=== PATIENT | female | born 1955 | race Caucasian/White ===

== ENCOUNTER → 2021-02-10 12:34 | Outpatient (CLI) | payer MEDICARE, OTHER, SELFPAY ==
--- NOTE | ~2021-02-10 | DEXA_ITS ---
Bone Density Report Name: KARO CHRISTENSEN Age: 65 Sex: Female Ethnicity: White Date of : 1955 Indication: postmenopausal; screening for osteoporosis; Referring Provider: Jaya Sy Study: Bone densitometry was performed. Exam Date: February 10, 2021 Accession number: [id number] Bone Density: Region BMD T-score Z-score Classification AP Spine (L1-L4) 0.759 -2.6 -0.7 Osteoporosis Femoral Neck (Left) 0.573 -2.5 -0.9 Osteoporosis Total Hip (Left) 0.713 -1.9 -0.6 Osteopenia Femoral Neck (Right) 0.556 -2.6 -1.0 Osteoporosis Total Hip (Right) 0.691 -2.1 -0.7 Osteopenia Total Hip Mean 0.702 -2.0 -0.7 Osteopenia World Health Organization criteria for BMD impression classify patients as: Normal (T-score at or above -1.0), Osteopenia (T-score between -1.0 and -2.5), or Osteoporosis (T-score at or below -2.5). 10-year Fracture Risk: FRAX not reported because: Some T-score for Spine Total or Hip Total or Femoral Neck at or below -2.5 Clinical Information Provided by Patient: Has used the following medications: Vitamin D Patient maximum height was 62.5 Menopause Age: 51 No regular weight bearing exercise Does not regularly consume dairy products Drinks caffeinated beverages Onset of menses at age 11 Number of children 4 Impression: The patient has osteoporosis, based on the Total Spine T-score. Discussion: INCREASED RISK OF FRACTURE. BONE DENSITY IS UNDESIRABLY LOW AT ONE OR MORE SKELETAL SITES, CONSISTENT WITH POSTMENOPAUSAL OSTEOPOROSIS. This patient's lowest T-score meets the World Health Organization's (WHO) criteria for osteoporosis at one or more sites (T-score -2.5 or below). In untreated patients, the risk of osteoporotic fracture increases approximately two-fold for each 1.0 SD decrease in T-score. Low bone density is not the only risk factor for fracture; also consider factors such as patient's age, frailty or poor health, risk of falling, risk of injury, previous osteoporotic fracture, family history of osteoporosis, cigarette smoking, low body weight, etc. Not everyone with low bone mineral density has osteoporosis; osteomalacia and other metabolic bone disorders should also be considered. Patients who have osteoporosis should be evaluated for specific diseases and conditions (secondary causes) that may cause or contribute to bone loss. The [place] [employer]ocr[employer] (AACE) and National Osteoporosis Foundation (NOF) recommend pharmacologic intervention for all postmenopausal women whose T-score is in this range. The patient should follow a healthful lifestyle (good nutrition with adequate calcium and vitamin D, and appropriate weight-bearing exercise). Follow-Up: Consider a repeat BMD and Vertebral Fracture Assessment (VFA) exam in 2 years or sooner if medically necessary, to re
== END ==
PROVIDERS: PCP Nurse Practitioner Family; Visit Provider Obstetrics & Gynecology
DX: M81.0 Age-related osteoporosis without current pathological fracture (principal); M85.852 Other specified disorders of bone density and structure, left thigh; M85.851 Other specified disorders of bone density and structure, right thigh
CPT/HCPCS: 77080

== ENCOUNTER 2023-10-08 12:52 | Outpatient (CLI) | payer MEDICARE, OTHER, SELFPAY ==
--- NOTE | ~2023-10-08 | DEXA_ITS ---
Bone Density Report Name: KARO CHRISTENSEN Age: 68 Sex: Female Ethnicity: White Date of : 1955 Indication: osteopenia; monitoring treatment; cancer; Referring Provider: RUDIAMIRAH Study: Bone densitometry was performed. Exam Date: October 08, 2023 Accession number: [id number] Bone Density: Region BMD T-score Z-score Classification AP Spine(L1-L4) 0.783 -2.4 -0.3 Osteopenia Femoral Neck (Left) 0.546 -2.7 -1.0 Osteoporosis Total Hip (Left) 0.735 -1.7 -0.2 Osteopenia Femoral Neck (Right) 0.563 -2.6 -0.8 Osteoporosis Total Hip (Right) 0.724 -1.8 -0.3 Osteopenia Total Hip Mean 0.730 -1.8 -0.3 Osteopenia World Health Organization criteria for BMD impression classify patients as: Normal (T-score at or above -1.0), Osteopenia (T-score between -1.0 and -2.5), or Osteoporosis (T-score at or below -2.5). 10-year Fracture Risk: FRAX not reported because: Some T-score for Spine Total or Hip Total or Femoral Neck at or below -2.5 Treated for osteoporosis Previous Exams: Region Exam Age BMD T-score BMD Change BMD Change Date g/cm2 vs Baseline vs Previous AP Spine (L1-L4) 10/08/2023 68 0.783 -2.4 -0.045 (-5.5%) -0.045 (-5.5%) 09/24/2014 59 0.828 -2.0 Total Hip(Left) 10/08/2023 68 0.735 -1.7 -0.027 (-3.6%) -0.027 (-3.6%) 09/24/2014 59 0.763 -1.5 Total Hip(Right) 10/08/2023 68 0.724 -1.8 -0.030 (-3.9%) -0.030 (-3.9%) 09/24/2014 59 0.754 -1.5 *Denotes significance at 95% confidence level, LSC for AP Spine = 0.022 g/cm2, LSC for Total Hip = 0.027 g/cm2 Clinical Information Provided by Patient: Is being treated for osteoporosis Has used the following medications: Prolia (i.e. denosumab), Vitamin D Has the following medical conditions: Cancer Patient maximum height was 62.5 Menopause Age: 49 Does not regularly consume dairy products Drinks caffeinated beverages Onset of menses at age 11 Number of children 4 Impression: The patient has osteoporosis, based on the Left Femoral Neck T-score. The BMD for the AP Spine (L1-L4) decreased, changing by -5.5% since the last DXA exam. The BMD for the Total Hip(Left) decreased, changing by -3.6% since the last DXA exam. The BMD for the Total Hip(Right) decreased, changing by -3.9% since the last DXA exam. Discussion: SIGNIFICANT BONE LOSS OBSERVED. Adherence to therapy (including calcium and vitamin D intake) should be assessed. If compliance is not a factor, review management a
== END 2023-10-08 12:53 | disposition home or self-care (01) ==
LOC: ANHIMG 12:56
PROVIDERS: PCP Nurse Practitioner Family; Visit Provider Internal Medicine
DX: Z78.0 Asymptomatic menopausal state (principal); M85.88 Other specified disorders of bone density and structure, other site; M81.0 Age-related osteoporosis without current pathological fracture; M85.852 Other specified disorders of bone density and structure, left thigh; M85.851 Other specified disorders of bone density and structure, right thigh
CPT/HCPCS: 77080

== ENCOUNTER 2024-07-12 00:41 | Day surgery (SDC) | payer MEDICARE, OTHER, SELFPAY ==
[2024-07-03 14:24] VITALS: BMI 19.3
--- NOTE | 2024-07-03 14:37 | PC.NURSE ---
Report to the Outpatient Waiting Room, entrance under the green pavilion located off [facility], at time ___10:00AM____ on date ___07/12/24____. Planned Procedure Time: ___12:00PM .? Time changes happen often and if your time is changed the preop area will call you the afternoon before. - You and your visitor will be asked to self-screen and do not enter if you have any COVID symptoms. Please call surgeon if you need to reschedule. - A mask is optional within the hospital at this time. Patients may have clear liquids (water, carbonated beverages, clear teas, apple juice) until 3 hours prior to surgery (9:00AM) with a maximum of 20 ounces. - No food from midnight until time of surgery and no smoking, or chewing tobacco (or any form of nicotine). No chewing gum, candy or mints. Take only the following medications with a SIP of water on the morning of surgery: ____BUSPIRONE DO NOT STOP ANY OF YOUR OTHER PRESCRIPTION MEDICATIONS PRIOR TO SURGERY EXCEPT THE FOLLOWING Hold all vitamins and supplements for 3 days per anesthesiologist.- LAST DOSE 07/08/24 Please no make-up, nail new zealander, hairspray, perfume, deodorant, or body powder the day of surgery.? No jewelry (including any body piercings) or valuables the day of surgery, leave them at home.? Please take a shower or bath the night before, or the morning of, surgery with an antibacterial soap.? Wear comfortable, loose fitting clothing.? - Jewelry must be removed prior to entering the operating room.? Rings and piercings that are not removed may be cut off. - The hospital will not accept responsibility for valuables.? - Please leave all valuables, including medications, at home the day of surgery. If you are going home after surgery, a licensed milk pickup driver must drive you home.? - NO public transportation without another adult if you receive anesthesia. - We recommend that an adult stay with you for 24 hours following discharge. - We also recommend that you do not drive, make important decision, drink alcoholic beverages, or take any drugs that were not prescribed by your health care provider for at least 24 hours after your discharge time. Follow any additional instructions given to you from your surgeon. Telephone instructions given to ___PATIENT and asked if any additional questions and then verbalized understanding. Patient advised to call surgeon office or pre surgery nurse liaison [phone] if any additional questions.
--- OUTSIDE RECORDS SUMMARY | 2024-07-12 00:44 | XMS_ITS | Clinical Summary ---
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 Name Role Phone Unavailable Primary Care Provider Unavailabl e Social History Tobacco Use Types Packs/Day Years Used Date Smoking Tobacco: Never Assessed Comments Unknown Sex and Gender Information Value Date Recorded Sex Assigned at Not on file Legal Sex Female 7:01 PM CDT Gender Identity Not on file Sexual Orientation Not on file Plan of Treatment Health Maintenance Due Date Last Done Comments Colorectal Cancer Screening Colonoscopy (10 Years) 1955 Hepatitis C 1972 DTaP, Tdap and Td Vaccines ( 1 - Tdap) 1973 Mammogram Screening 1994 Pneumococcal Vaccine: 50+ Ye ars (1 of 1 - PCV) 2004 Zoster Vaccines (1 of 2) 2004 Dexa Scan (General) 06/18/2019 COVID-19 Vaccine ( - 2023-2 5 season) 2023 RSV Immunization or 60+ Years (1 - 1-dose 75+ series) 2029 Meningococcal B Vaccine Aged Out No l onger eligible based on patient's age to complete this topic Meningococcal Vaccine Aged Out No jaimee nneka eligible based on patient's age to complete this topic RSV Immunizations Under 20 Months Aged Out No longer eligible based on patient's age to complete this topic
--- OUTSIDE RECORDS SUMMARY | 2024-07-12 00:44 | XMS_ITS | Data Portability ---
Author Organization [facility] Address [address] [place] [address] [place] [address] Assessment Encounter Date Assessment Date Assessment LastModified by Organization Details LastModified Time 08/18/2023 08/18/2023 Annual gynecological exam performed. Patient will come back in a year unless there are new symptoms. [email or web address] Not available 08/18/2023 10:58:35 Plan of Treatment Reminders Order Date Submit Date Provider Last Modified By Organization Details Last Modified Time Details Appointments SURG Hysterosc opy 2024 12:00P Dawit SY MD Not available Not available Not available SURG POST OP 2024 02:15P Dawit SY MD Not available Not available Not available Lab urinalysi s, dipstick 2024 025 [address], [address], [place], [address], 05/11/2024 12:52:51 Referral None recorded. Procedures None recorded. Surgeries hysterosc opy, surgical, with biopsy of endometri um and/or polypecto my (SURG) 2024 025 [id number] Bob Surgery [facility], [address], [place], [address], 06/13/2024 15:24:57 Imaging US, pelvis 2024 025 [email or web address] [place], [address], [place], [address], 05/18/2024 22:26:43 US, transvagi nal 2024 025 [email or web address] [place], [address], [address], [place], [address], 05/18/2024 22:26:43 Medication Orders None recorded. Patient TargetsNo targets recorded. Patient InstructionsNo instructions recorded. Reason for Referral None Reported. 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 Atrop hic conner bob rn. Elect adrienne natarajan d by Sahil Wills ed, CT on 2023 at 11:43 PM ----- ----- ----- ----- ----- ----- ----- ----- ----- ----- ----- ----- ----- ----- ----- ----- ----- ---- HPV RESUL TS: HPV mRNA E6/E7 : No HPV mRNA Detec memo NOTE: This high risk HPV mRNA assay detec ts fourt een high- risk HPV types (16, 18, 31, 33, 35, 39, 45, 51, 52, 56, 58, 59, 66, 68) witho ut diffe renti ation . COMME NT: This speci men was revie wed by a Cytot echno logis t and/o r Patho logis t (as indic ated in this repor t) after evalu ation using the Thinp rep Imagi ng Syste m. CLINI SABI INFOR MATIO N: Menst rual Statu s: LMP (if appli cable ): Clini sabi Histo ry/Pr eviou s Pap: Type of Neopl santino (if appli cable ): Signi fican t Clini sabi Findi ngs: Other Histo ry: Hormo frank (if appli cable ): PAP EDUCA JOSHUA L NOTE: The Pap Test is a scree milind test with an inher ent false negat luba rate. Liqui d-bas ed sampl ing may decre ase, but will not elimi anthony, false negat luba resul ts. A negat luba resul t does not precl ude the prese nce and/o r devel opmen t of disea se, since the prese nce of abnor mal cells in the sampl e depen ds on the locat ion of the lesio n and sampl ing techn ique. Oj nued regul ar scree milind is the best metho d of cance r preve ntion . If repor memo cytol ogic findi ng do not corre late with physi sabi and/o r histo rical findi ngs, furth er inves tigat ion is recom scarlett d, as clini simi moses nted. Not Available [facility] (Lab) [address], [place], [address], 08/21/2023 00:46:41 05/11/19 25 05/11/2024 CULTU RE: URINE result report SEE RESULT S BELOW Test: Cultu re: Urine Speci men Sourc e: Urine - Clean Catch Speci men Type: Urine Speci men Date: 2024 1422 Resul t Date: 20249 Resul t Statu s: Final resul t Abnor mal: No Resul ting Lab: [facility] [address] [facility] [address] Tel: [phone] CULTU RE ----- ----- ----- --- No growt h in 1 day (dete ction level of 10,00 0 colon ies / ml.) Not Available [facility] (Lab) [address], [place], [address], 05/14/2024 23:59:01 05/11/19 25 05/11/2024 urina lysis , dipst ick Leukocytes neg Not Available [email or web address] [address], [place], [address], 05/11/2024 12:52:05 05/11/19 25 05/11/2024 urina lysis , dipst ick Nitrite neg Not Available [facility] [address], [place], [address], 05/11/2024 12:52:05 05/11/19 25 05/11/2024 urina lysis , dipst ick Urobilinogen neg Not Available [facility] nancy [address], [place], [address], 05/11/2024 12:52:05 05/11/19 25 05/11/2024 urina lysis , dipst ick Protein pos Not Available [facility] [address], [place], [address], 05/11/2024 12:52:05 05/11/19 25 05/11/2024 urina lysis , dipst ick pH 6 Not Available [facility] [address], [place], [address], 05/11/2024 12:52:05 05/11/19 25 05/11/2024 urina lysis , dipst ick Specific [place] 1.025 Not Available [facility] renard [address], [place], [address], 05/11/2024 12:52:05 05/11/19 25 05/11/2024 urina lysis , dipst ick Ketone neg Not Available [facility] [address], [place], [address], 05/11/2024 12:52:05 05/11/19 25 05/11/2024 urina lysis , dipst ick Bilirubin neg Not Available [facility] [address], [place], [address], 05/11/2024 12:52:05 05/11/19 25 05/11/2024 urina lysis , dipst ick Glucose neg Not Available [facility] [address], [place], [address], 05/11/2024 12:52:05 05/11/19 25 05/11/2024 urina lysis , dipst ick Appearance light Not Available Cristi [email or web address] [address], [place], [address], 05/11/2024 12:52:05 05/11/19 25 05/11/2024 urina lysis , dipst ick Color yellow Not Available [facility] [address], [place], [address], 05/11/2024 12:52:05 05/18/19 25 05/18/2024 US, gualberto Burks observ ation record ed. [email or web address] [facility] [address], [place], [address], 05/18/2024 18:37:11 05/18/19 25 05/18/2024 US, trans vagin al No observ ation record ed. [email or web address] [place] [address], [place], [address], 05/18/2024 18:37:20 05/18/19 25 05/18/2024 US, pelvi s No observ ation record ed. [email or web address] Michelle [address], [place], [address], 05/19/2024 15:29:47 Result Notes None recorded. Problems Name Problem SNOMED Code Status Onset Date Resolution Date Notes Provider Name and Address Organization Details Recorded Time Screenin g for malignan t neoplasm of rectum Completed 201507/25/2020 Encounter for screening for malignant neoplasm of rectum;Re corded Elsewhere : No Locati on: [facility] So urce: EHR Chron ic: N Practic e ID: 0001 Bill able Time: 10:30:00 AM Hali [facility] 14:54:[address] Concept Completed 201507/25/2020 Encounter for independent jeweler exam with abnormal findings; Recorded Elsewhere : No Locati on: [facility] So urce: EHR Chron ic: N Practic e ID: 0001 Bill able Time: 10:45:00 AM Hali [facility] 14:54:42 Acute vaginiti s [id number] Completed 201507/25/2020 Vaginitis ;Recorded Elsewhere : No Locati on: [facility] So urce: EHR Chron ic: N Practic e ID: 0001 Bill able Time: 03:15:00 PM Hali [facility] 14:54:[address] Concept Completed 201507/25/2020 Encntr for independent jeweler exam (general) (routine) w/o abn findings; Recorded Elsewhere : No Locati on: [facility] So urce: EHR Chron ic: N Practic e ID: 0001 Bill able Time: 10:30:00 AM Hali Yuan [facility] 14:54:44 Evaluati on finding Completed 201907/25/2020 Hematuria , unspecifi ed;Record ed Elsewhere : No Locati on: [facility] So urce: EHR Chron ic: N Practic e ID: 0001 Bill able Time: 04:42:14 PM Hali Yuan [facility] 14:54:[address] Concept Completed 201607/25/2020 Encntr for general adult medical exam w/o abnormal findings; Recorded Elsewhere : No Locati on: [facility] So urce: EHR Chron ic: N Practic e ID: 0001 Bill able Time: 09:30:00 AM Hali Yuan [facility] 14:54:40 Infectio n screenin g Completed 201507/25/2020 Encounter for screening for oth infec/par astc diseases; Recorded Elsewhere : No Locati on: [facility] So urce: EHR Chron ic: N Practic e ID: 0001 Bill able Time: 04:30:00 PM Hali Yuan [facility] 14:54:31 Syphilis test finding [id number] Completed 201507/25/2020 Encntr screen for infection s w sexl mode of transmiss ;Recorded Elsewhere : No Locati on: [facility] So urce: EHR Chron ic: N Practic e ID: 0001 Bill able Time: 04:30:00 PM Hali Yuan [facility] 14:54:46 Vaginola bial hernia Completed 201507/25/2020 Other specified noninflam matory disorders of vagina;Re corded Elsewhere : No Locati on: [facility] So urce: EHR Chron ic: N Practic e ID: 0001 Bill able Time: 04:45:00 PM Hali hays [facility] 14:54:48 Postmeno pausal bleeding [id number] Completed 201607/25/2020 Postmenop ausal bleeding; Recorded Elsewhere : No Locati on: [facility] So urce: EHR Chron ic: N Practic e ID: 0001 Bill able Time: 09:15:00 AM Hali hays [facility] 14:54:35 Imaging of abdomen abnormal [id number] Completed 201507/25/2020 Abn findings on dx imaging of abd regions, inc retroperi ton;Pract ice ID: 0001 Hali Yuan [facility] 14:54:[address] Concept Completed 201607/25/2020 Encounter for general adult medical exam w abnormal findings; Practice ID: 0001 Hali Yuan [facility] 14:54:37 Osteopor osis [id number] Active 2020 Jin Schraderyesica hays [facility] 10:37:43 Problem Notes None recorded. Procedures Surgical History Date Name Laterality Status Provider Name and Address Organization Details Recorded Time 08/18/19 24 Date of Last Pap Smear completed [place] [facility] 02/29/2024 09:52:46 04/07/19 24 Date of Last Mammogram completed Saida Camacho [facility] 08/18/2023 10:59:13 02/11/20 21 Most Recent Bone Density completed Hali Yuan [facility] 03/02/2021 13:39:28 03/22/19 21 operation on rectum completed Saida Camacho [facility] 08/18/2023 11:02:17 02/20/20 16 hysteroscopy completed Kera Conway [facility] 12/23/2020 12:12:19 07/26/19 13 colonoscopy completed Evelyn Ortiz [facility] [address], [place], [address], [place] [facility] 07/29/2022 09:45:57 10/21/19 07 Mastectomy completed Kera Conway [facility] 12/23/2020 12:12:25 Imaging Results Imaging Date Name Status LastModified by Organization Details LastModified Time 05/18/2024 US, pelvis completed [email or web address] [facility] [address], [place], [address], 05/18/2024 18:37:11 05/18/2024 US, transvaginal completed [email or web address] [place] [address], [place], [address], 05/18/2024 18:37:20 05/18/2024 US, pelvis completed [email or web address] [address], [place], [address], 05/19/2024 15:29:47 Procedure Notes None recorded. Medical Equipment None Reported. Allergies No known drug allergies Medications Name Sig Start Date Stop Date Status Note LastModified by Organization Details LastModified Time flowflex covid-19 ag home t TEST DIRECTED PER MANUFACT URER AND CDC GUIDANCE 07/29 completed Not Available Not Available Not Available amoxicill in 500 mg capsule TAKE 1 CAPSULE BY MOUTH TWICE DAILY FOR 7 DAYS 05/11 completed Not Available Not Available Not Available clindamyc in HCl 300 mg capsule TAKE 1 CAPSULE BY MOUTH TWICE DAILY FOR 10 DAYS active Not Available Not Available No t Available prednison e 20 mg tablet TAKE 3 TABLETS BY MOUTH DAILY FOR 5 DAYS 02/28 completed Not Available Not Available Not Available alendrona te 70 mg tablet Take 1 tablet PO 1x/wk keeping in an upright position for 30mins after ingestio n. 07/29 completed Pt decided not to start this medicati on after reading side effects, [facility] request. Not Available Not Available Not Available amoxicill in 500 mg tablet take 1 tablet by oral route every 8 hours 02/26 completed Prescrib ed Elsewher e: No Locat ion: Aretha hemal [facility] odify By: ampierre Recio [email or web address] DateTime : 01/28/20 16 01:16:34 PM Not Available Not Available Not Available Flagyl 500 mg tablet take 4 tablet by oral route at one time 02/26 completed Prescrib ed Elsewher e: No Locat ion: [facility] odify By: ampierre Recio [email or web address] DateTime : 01/23/20 16 04:30:00 PM Not Available Not Available Not Available buspirone 10 mg tablet active Not Available Not Available Not Available polymyxin B sulfate 10,000 unit-trim ethoprim 1 mg/mL eye drops INSTILL 1 DROP IN BOTH EYES EVERY 6 HOURS FOR 7 DAYS 08/17 completed Not Available Not Available Not Available buspirone 7.5 mg tablet take 1 tablet by oral route 2 times every day 12/08 completed Prescrib ed Elsewher e: Yes Loca tion: [facility] odify By: vasu tz Encou nter DateTime : 12/09/19 16 10:30:00 AM Not Available Not Available Not Available scopolami ne 1 mg over [address] ONE PATCH ON THE SKIN EVERY THIRD DAY. 07/29 completed Not Available Not Available Not Available methylpre dnisolone 4 mg tablets in a dose pack FOLLOW PACKAGE DIRECTIO NS 08/17 completed Not Available Not Available Not Available cefdinir 300 mg capsule TAKE 1 CAPSULE BY MOUTH EVERY 12 HOURS FOR 10 DAYS 08/17 completed Not Available Not Available Not Available amoxicill in 875 mg-potass ium clavulana te 125 mg tablet TAKE 1 TABLET BY MOUTH TWICE DAILY FOR 10 DAYS 07/29 completed Not Available Not Available Not Available buspirone 15 mg tablet TAKE 1 TABLET BY MOUTH EVERY DAY 06/10 completed Not Available Not Available Not Available multivita min active Not Available Not Available Not Available Prolia 60 mg/mL subcutane ous syringe active Not Available Not Available Not Available Vitamin D2 1,000 unit capsule Take by oral route. active Not Available Not Available No t Available Flowflex COVID-19 Antigen Home Test kit TEST DIRECTED PER MANUFACT URER AND CDC GUIDANCE 07/29 completed Not Available Not Available Not Available Vitals Date Recorded Body height Body mass index (BMI) Body weight Systolic blood pressure Diastolic blood pressure Provider Name and Address Organization Details Last Updated DateTime 08/18/2023 157.48 cm 21.8 kg/m2 00330.49 g 115 mm[Hg] 71 mm[Hg] Saida Camacho [facility] 4 10:58:58 Date Recorded Body height Body mass index (BMI) Body weight Systolic blood pressure Diastolic blood pressure Provider Name and Address Organization Details Last Updated DateTime 02/29/2024 157.48 cm 20.1 kg/m2 06107.16 g 139 mm[Hg] 84 mm[Hg] [place] [facility] 4 09:52:09 Date Recorded Body height Body mass index (BMI) Body weight Systolic blood pressure Diastolic blood pressure Provider Name and Address Organization Details Last Updated DateTime 05/11/2024 157.48 cm 19.8 kg/m2 84569.98 g 118 mm[Hg] 76 mm[Hg] DARREN Amaro [facility] 5 12:41:47 Date Recorded Body height Body mass index (BMI) Body weight Systolic blood pressure Diastolic blood pressure Provider Name and Address Organization Details Last Updated DateTime 06/10/2024 157.48 cm 19.8 kg/m2 24501.69 g 100 mm[Hg] 69 mm[Hg] Nupur Obdulia [facility] 5 09:23:57 Social History Question Answer Notes LastModified by Organizat ion Details LastModified Time Tobacco Smoking Status Never [facility] 07/29[facility]2022 09:27:52 Do You Have An Advance Directive? No Information n ot available 07/26/2020 What Is Your Level Of Alcohol Consumption? Occasional Information not available 07/26/2020 Are You Blind Or Do You Have Difficulty Seeing? No Information n ot available 07/25/2020 What Is Your Level Of Caffeine Consumption? Moderate Information not available 07/26/2020 How Much Tobacco Do You Chew? None [email or web address] Information not available 02/29/2024 In The 14 Days Before Symptom Onset, Have You Had Close Contact With A Laboratory-confirm ed COVID-19 While That Case Was Ill? No Information n ot available 07/26/2020 In The 14 Days Before Symptom Onset, Have You Had Close Contact With A Person Who Is Under Investigation For COVID-19 While That Person Was Ill? No Information not available 07/26/2020 Have You Been To An Area Known To Be High Risk For COVID-19? No Information not available 07/26/2020 Are You Deaf Or Do You Have Serious Difficulty Hearing? No Information not available 07/25/2020 What Type Of Diet Are You Following? REGULAR Information n ot available 07/25/2020 What Is The Highest Grade Or Level Of School You Have Completed Or The Highest Degree You Have Received? [id number] Information not available 07/26/2020 What Is Your Occupation? Retired [email or web address] Information not available 12/23/2020 Are There Any Guns Present In Your Home? No Information not available 07/26/2020 Do You Use Protection During Sex? Usually [email or web address] Information not available 02/29/2024 Do You Use Your Seat Belt Or Car Seat Routinely? Yes Information not available 07/25/2020 Do You Have Smoke And Carbon Monoxide Detectors In Your Home? Yes Information not available 07/25/2020 How Much Tobacco Do You Smoke? No Information not available 07/26/2020 Do You Feel Stressed (tense, Restless, Nervous, Or Anxious, Or Unable To Sleep At Night)? [id number] [email or web address] Information not available 06/10/2024 Do You Use Any Illicit Or Recreational Drugs? No Information not available 07/25/2020 Do You Use Sunscreen Routinely? Yes Information not available 07/25/2020 Have You Used IV Drugs? No Information not available 07/26/2020 Sex: Unknown Functional Status Question Answer Note LastModified by Organization D etails LastModified Time Are you able to walk? [email or web address] Information not available 07/25/2020 What is your exercise level? Moderate Information not available 07/25/2020 Mental Status None recorded. Family History Relationship Description Onset Age of this Age Resolved Age Notes LastModified by Organization Details LastModified Time Sister Malignant tumor of breast 54 [email or web address] Not available 2024 09:19:47 Sister Malignant tumor of breast [email or web address] Not available 2023 09:48:45 Medical History Condition Response Allergies (Food, seasonal, environmental ) N Other N Drug/Latex Allergies/Reactions N Blood Transfusion N Breast Cancer Y Dermatologic Disorders N Lung Disease N Defects or Inherited Disease N Breast Problem Y Gestational Diabetes N Hematologic disorders N Anesthesia Complications N History of STI N Deep Vein Thrombosis N Polycystic ovary syndrome N Anxiety Disorder Y Autoimmune disease N Arthritis N Polyps N Infertility N Acid Reflux (GERD) N History of abnormal pap N Cancer Y Varicosities N Stroke N Neurologic/Epilepsy N Endometriosis N High Cholesterol N Fibromyalgia N Headaches N Kidney Disease N Heart Problems N Thyroid Problems N Kidney or Bladder Problems N GI Problems N Eating Disorder N Anemia N Art (IVF or FET) N Psychiatric Illness N Ovarian Cancer N Diabetes N Pulmonary (TB, Asthma) N Hepatitis/Liver Disease N No Past Medical History N Eczema N Urinary Tract Infection N Abuse/Domestic Violence N Asthma N Trauma/Violence N Depression/ depression Y Heart Disease N Pre-Eclampsia N Hypertension N Osteoporosis Y Thrombophilias N Gynecological History Statement/Question Response Abnormal Pap N Date of Last Mammogram 04/07/2023 Date of LMP 02/15/2017 N STIs/STDs N HPV Vaccine N Current Control Method Menopause Age at First Child 23 If Post Menopausal, Age at Menopause 51 Date of Last Colonoscopy Most Recent Bone Density 02/10/2021 Sexually Active? Y Menses Monthly N Age of first menstrual cycle 11 Date of Last Pap Smear 08/18/2023 Sexual Problems? N LMP Unknown N Obstetrics History GPAL:G 4 P 4 0 0 4 Type Value Full Term 4 Living 4 Total 4 Past Encounters Encounter ID Performer Location Encounter Start Date Encounter Closed Date Diagnosis/Indication Diagnosis SNOMED-CT Code Diagnosis ICD10 Code Diagnosis Note [id number] Evelyn Ortiz , [facility] [address],[place] [address] 07/26/2020 10:32:25 07/26/2020 11:46:22 Gynecologic examination [id number] Z01.419 Take Calcium with Vitamin D 12-1500mg daily. Do monthly self breast exams. It is advised to get annual flu shot in the fall and she could obtain at [facility] or [facility] care clinic. If you haven't received the Tdap vaccine in the last 10 years you should obtain one as well. Have mammogram yearly, bone density every 2-3 years and colonoscop y every 5-10 years depending on findings and history. Engage in daily exercise of low impact aerobic exercise 45-60 minutes 4-5 times weekly. Avoid tobacco and illicit drugs as well as using moderation with alcohol intake less than 1-2 8 oz beverages daily. This lifestyle behavior pattern will lead to less health conditions and longer life span. If BMI greater than 25 weight watchers or dietary consult advised. Questions have been answered. Patient appears to understand instructio ns, but if you have any further questions call or respond to this email We reviewed her personal/f amily hx. We agreed to d/c pap/hpv with life long normal hx of pap/hpv neg. She is , no new partners. Pap/hpv d/c unless otherwise indicated per asccp after age 64yo. Personal Hx of Breast cancer Surgery & Tamoxifen (7yrs ago) Still sees breast specialist for routine care. Due for colonoscop y. Will call [facility]- to schedule. Dexa ordered No other issues or concerns. Postmenopa usal osteopenia [id number] M85.80 Generalize d anxiety disorder 14577054 F41.1 Doing well on this medication . Wishes to continue. 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 Time spent in visit is a total of 15 mins with at least 50% of visit consisting of counseling and review of plan of care. Additional precaution mariel measures were taken to minimize potential exposure to the Covid-19 virus during this patient s visit, including available hand plant scientist upon arrive, temperatur e check and being asked a series of screening questions. All staff wore face coverings during this encounter, as well as provided additional cleaning and sanitizing of all surfaces, including countertop s, pens, chairs, door handles, light switches, etc, prior to and following the patient s visit. [id number] Evelyn Ortiz [facility] [address] [address] 07/29/2022 09:27:43 07/29/2022 10:10:17 Gynecologic examination [id number] Z01.419 Take Calcium with Vitamin D 12-1500mg daily. Do monthly self breast exams. It is advised to get annual flu shot in the fall and she could obtain at [facility] or [facility] take care clinic. If you haven't received the Tdap vaccine in the last 10 years you should obtain one as well. Have mammogram yearly, bone density every 2-3 years and colonoscop y every 5-10 years depending on findings and history. Engage in daily exercise of low impact aerobic exercise 45-60 minutes 4-5 times weekly. Avoid tobacco and illicit drugs as well as using moderation with alcohol intake less than 1-2 8 oz beverages daily. This lifestyle behavior pattern will lead to less health conditions and longer life span. If BMI greater than 25 weight watchers or dietary consult advised. Questions have been answered. Patient appears to understand instructio ns, but if you have any further questions call or respond to this email Pap/hpv USPSTF recommends against screening for cervical cancer in women older than 65yo, those who've had a hysterecto my for non-cancer indication s, & who have had adequate prior screening & are not otherwise at high risk for cervical cancer. STD Screen -declined Genetic Screen-dis cussed Colon Screen due age 69yo, would like PCP to manage moving forward. Dexa Screen Endocrinol ogist Routine Labs PCPMammo-m anaged by breast specialist [id number] [facility] [address] [address] 08/18/2023 10:52:06 08/18/2023 11:19:43 Gynecologic examination [id number] Z01.419 Take Calcium with Vitamin D 12-1500mg daily. Do monthly self breast exams. It is advised to get annual flu shot in the fall and she could obtain at [facility] or [facility] care clinic. If you haven't received the Tdap vaccine in the last 10 years you should obtain one as well. Have mammogram yearly, bone density every 2-3 years and colonoscop y every 5-10 years depending on findings and history. Engage in daily exercise of low impact aerobic exercise 45-60 minutes 4-5 times weekly. Avoid tobacco and illicit drugs as well as using moderation with alcohol intake less than 1-2 8 oz beverages daily. This lifestyle behavior pattern will lead to less health conditions and longer life span. If BMI greater than 25 weight watchers or dietary consult advised. Questions have been answered. Patient appears to understand instructio ns, but if you have any further questions call or respond to this email Pap/hpv (hx of breast cancer) opts to have pap/hpv yearly or every other year. USPSTF recommends against screening for cervical cancer in women older than 65yo, those who've had a hysterecto my for non-cancer indication s, & who have had adequate prior screening & are not otherwise at high risk for cervical cancer. STD Screen -declinedG enetic Screen-dis cussedColo n Screen due age 69yo, would like PCP to manage moving forward.De xa Screen Endocrinol ogistRouti ne Labs PCPMammo-m anaged by breast specialist [id number] MORENITA BRITO MD [facility] [address],[place] [address] 02/29/2024 09:45:11 03/03/2024 02:18:46 Mixed anxiety and depressive disorder [id number] F41.8 - previously well controlled with buspar 7.5mg- increased stress due to recent breakup, intermitte ntly taking additional buspar doses if needed- discussed buspar works best when taken consistent ly; recommend daily 15mg dosage for stability of dose and most benefit; if still having worsening symptoms on higher dose, could consider transition to other medication - recommend mood check in 1 month [id number] Ludmila Yuan [facility] [address],[place] [address] 05/18/2024 16:41:23 05/18/2024 17:44:36 Pain in pelvis [id number] R10.2 [id number] GILES Douglass [facility] [address],[place] [address] 05/11/2024 12:09:56 05/12/2024 08:58:01 Pain in pelvis [id number] R10.2 This patient is a 68 -year-old female with pelvic pain. We have agreed to complete the evaluation with pelvic ultrasound . The patient will return after the pelvic ultrasound to discuss those findings and to develop a treatment plan. A comprehens luba history and physical exam was performed today. We spent over 25 minutes face-to-fa ce. The patient was given precaution s. She will contact clinic if pelvic pain increases in frequency or intensity. Also notify clinic of any new symptoms associated with pelvic pain. She does not appear to have an acute pelvic infection today, but was asked to contact us Immediatel y with nausea, vomiting, fever, chills. urine cx sentSTI screen declined [id number] Sg Sy MD [facility] [address],[place] [address] 06/10/2024 09:19:42 06/10/2024 12:58:29 Lesion of endometrium [id number] 9101 N85.9 This patient is a 68-year-ol d female presents for ultrasound follow-up. Ultrasound revealed a endometria l polyp Or endometria l lesion. We discussed the etiology, natural history, treatment of endometria l polyps. Given her age the polyp should be resected. She has history of breast cancer as well. She would like to proceed with hysterosco py, D and C and possible polypectom y. The patient understand s the procedure. The procedure was described to the patient in great detail. the patient also understand s the risks. The risks were also explained in detail. She understand s that injuries May occur during surgery. She understand s these injuries can result in hospitaliz ation, more surgery, and severe illness. She understand s there is risk of hemorrhage and infection. Health Concerns Section Related Observation LastModified by Organization Detai ls LastModified Time None Recorded Concern Status LastModified by Organization Details LastModified Time None Recorded Advance Directives Directive N: Payers Encounter Date Sequence Insurance Name Policy Number Policy Daniel Covered Member ID Daniel Member ID Guarantor Name 08/18/2023 1 [place] Kenyetta Amin [id number] Kenyetta Eloisa 08/18/2023 2 [employer] (MEDICARE SUPPLEMENT) Kenyetta Amin [id number] Kenyetta Eloisa 02/29/2024 1 [place]yetta Caitie Amin [id number] Kenyetta Eloisa 02/29/2024 2 [employer] (MEDICARE SUPPLEMENT) Kenyetta Amin [id number] Kenyetta Eloisa 05/11/2024 1 [place]yetta Amin [id number] Kenyetta Eloisa 05/11/2024 2 [employer] (MEDICARE SUPPLEMENT) Kenyetta Amin [id number] Kenyetta Eloisa 05/18/2024 1 [place] Kenyetta Caitie Amin [id number] Kenyetta Eloisa 05/18/2024 2 [employer] (MEDICARE SUPPLEMENT) Kenyetta Amin [id number] Kenyetta Eloisa 06/10/2024 1 [place] Kenyetta Caitie Amin [id number] Kenyetta Eloisa 06/10/2024 2 [employer] (MEDICARE SUPPLEMENT) Kenyetta Amin [id number] Kenyetta Eloisa Notes Date Note Type Note Provider Name and Address Organization Details Recorded Time 08/18/2023 text/html 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 Post-MenopausalRepo rted bypatient.Menopausa l Symptoms:no menopausal symptoms; normal vaginal lubrication Vaginal Bleeding:history of menopause having occurred; no history of post menopausal bleeding Urinary Symptoms:no hematuria; no incontinence; no nocturia; no urinary frequency Vulva:no genital lesion; no vulvar atrophy Vagina:normal vaginal discharge; no vaginal atrophy Breast:no breast lump; no nipple discharge; no breast pain Sexual Complaints:no sexual complaints Psychological Symptoms:no depression; no anxiety Preventive Measures:encourage regular mammograms starting age 40; encourage self breast examination; encourage regular exercise; encourage no tobacco use; mammogram performed within the past year; history of recent colonoscopy (due age 69yo) GILES Raymundo- [address], [place], [address], [facility] 08/18/2023 11:18:20 02/29/2024 text/html Patient presents to discuss anxiety/depression. Recently went through break up 6 weeks ago after 3 years. She reports crying spells, has lost weight, lost motivation. No SI/HI. Currently taking buspar 7.5mg, however occasionally takes an additional 1-2 7.5mg later in the day if still feeling down. Has tried Wellbutrin, had electrical shock sensations so discontinued. MORENITA BRITO MD [address], [place], [address], [facility] 03/02/2024 13:52:29 05/11/2024 text/html 68yopresents wit h c/o right sided pelvic paindull ache that comes and goes over the past few weeksworse with exercise/movementsh e is SA with a steady male partner neg n/v/fneg vaginal d/c, odors, itchingneg urinary symptomsbowel movements wnl GILES Douglass [address], [place], [address], [facility] 05/12/2024 09:08:29 06/10/2024 text/html This patient is a 68-year-old female presents for ultrasound follow-up. Ultrasound revealed a endometrial polyp Or endometrial lesion. We discussed the etiology, natural history, treatment of endometrial polyps. Given her age the polyp should be resected. She has history of breast cancer as well. She would like to proceed with hysteroscopy, D and C and possible polypectomy. The patient understands the procedure. The procedure was described to the patient in great detail. the patient also understands the risks. The risks were also explained in detail. She understands that injuries May occur during surgery. She understands these injuries can result in hospitalization, more surgery, and severe illness. She understands there is risk of hemorrhage and infection. Sg Sy MD [address], [place], [address], [facility] 06/10/2024 12:44:54 OBGyn Episode Ob Episode Information Episode Created Date Number of Fetuses Patient Bloodtype Patient rh Status Prepregnancy Weight lbs Domestic Partner Domestic Partner Phone Father Name Electronic Scanner Operator Status 07/26/19 21 1 CLOSED Fetus Data First Name Last Name Admitted to NICU Weight (g) Sex Living Outcome Pediatric Complications Fetus ID Race Codes Race Delivery Type 2948.34 8 F Full Term 9658 Vaginal Delivery Shawn Calculation Initial Shawn Date Initial Exam Date Initial Exam Provider Initial Ultrasound Date Last Menstrual Period Date Ultra Sound Weeks Gestation 0 Eighteen To Twenty Week Shawn Update Ultra Sound Date Fundal Height At Umbil Quickening Date Ultra Sound Latest Weeks Gestation Final Shawn Confirmed By Final Shawn Confirmed Date Final Shawn Date Ultra Sound Latest Days Gestation 0 0 Menstrual History Last Menstrual Date Menses Monthly On Bcp Conception Prior Menses Frequency Hcg Plus Date Menarche Onset Age Delivery Information Delivery Date Delivery Type Labor Anesthesia Weeks Gestation Incision Type Labor Labor Length Hrs Delivered By Post Complications Tubal Sterilization Discharge Date Comments 9 Discharge Information Feeding Method Contraceptive Method Maternal HG B and HCT Levels Ob Episode Information Episode Created Date Number of Fetuses Patient Bloodtype Patient rh Status Prepregnancy Weight lbs Domestic Partner Domestic Partner Phone Father Name Electronic Scanner Operator Status 07/26/19 21 1 CLOSED Fetus Data First Name Last Name Admitted to NICU Weight (g) Sex Living Outcome Pediatric Complications Fetus ID Race Codes Race Delivery Type 3345.24 1 F Full Term 9657 Vaginal Delivery Shawn Calculation Initial Shawn Date Initial Exam Date Initial Exam Provider Initial Ultrasound Date Last Menstrual Period Date Ultra Sound Weeks Gestation 0 Eighteen To Twenty Week Shawn Update Ultra Sound Date Fundal Height At Umbil Quickening Date Ultra Sound Latest Weeks Gestation Final Shawn Confirmed By Final Shawn Confirmed Date Final Shawn Date Ultra Sound Latest Days Gestation 0 0 Menstrual History Last Menstrual Date Menses Monthly On Bcp Conception Prior Menses Frequency Hcg Plus Date Menarche Onset Age Delivery Information Delivery Date Delivery Type Labor Anesthesia Weeks Gestation Incision Type Labor Labor Length Hrs Delivered By Post Complications Tubal Sterilization Discharge Date Comments 5 Discharge Information Feeding Method Contraceptive Method Maternal HG B and HCT Levels Ob Episode Information Episode Created Date Number of Fetuses Patient Bloodtype Patient rh Status Prepregnancy Weight lbs Domestic Partner Domestic Partner Phone Father Name Electronic Scanner Operator Status 07/26/19 21 1 CLOSED Fetus Data First Name Last Name Admitted to NICU Weight (g) Sex Living Outcome Pediatric Complications Fetus ID Race Codes Race Delivery Type 2919.77 1704 M Full Term 9656 Vaginal Delivery Shawn Calculation Initial Shawn Date Initial Exam Date Initial Exam Provider Initial Ultrasound Date Last Menstrual Period Date Ultra Sound Weeks Gestation 0 Eighteen To Twenty Week Shawn Update Ultra Sound Date Fundal Height At Umbil Quickening Date Ultra Sound Latest Weeks Gestation Final Shawn Confirmed By Final Shawn Confirmed Date Final Shawn Date Ultra Sound Latest Days Gestation 0 0 Menstrual History Last Menstrual Date Menses Monthly On Bcp Conception Prior Menses Frequency Hcg Plus Date Menarche Onset Age Delivery Information Delivery Date Delivery Type Labor Anesthesia Weeks Gestation Incision Type Labor Labor Length Hrs Delivered By Post Complications Tubal Sterilization Discharge Date Comments 1 Discharge Information Feeding Method Contraceptive Method Maternal HG B and HCT Levels Ob Episode Information Episode Created Date Number of Fetuses Patient Bloodtype Patient rh Status Prepregnancy Weight lbs Domestic Partner Domestic Partner Phone Father Name Electronic Scanner Operator Status 07/26/19 21 1 CLOSED Fetus Data First Name Last Name Admitted to NICU Weight (g) Sex Living Outcome Pediatric Complications Fetus ID Race Codes Race Delivery Type 3458.63 9 F Full Term 9655 Vaginal Delivery Shawn Calculation Initial Shawn Date Initial Exam Date Initial Exam Provider Initial Ultrasound Date Last Menstrual Period Date Ultra Sound Weeks Gestation 0 Eighteen To Twenty Week Shawn Update Ultra Sound Date Fundal Height At Umbil Quickening Date Ultra Sound Latest Weeks Gestation Final Shawn Confirmed By Final Shawn Confirmed Date Final Shawn Date Ultra Sound Latest Days Gestation 0 0 Menstrual History Last Menstrual Date Menses Monthly On Bcp Conception Prior Menses Frequency Hcg Plus Date Menarche Onset Age Delivery Information Delivery Date Delivery Type Labor Anesthesia Weeks Gestation Incision Type Labor Labor Length Hrs Delivered By Post Complications Tubal Sterilization Discharge Date Comments Discharge Information Feeding Method Contraceptive Method Maternal HG B and HCT Levels
--- OUTSIDE RECORDS SUMMARY | 2024-07-12 00:44 | XMS_ITS | Clinical Summary ---
Author Organization [facility] Address [address] [place] [address] Phone Care Team Providers Care Interior Horticulturist Name Role Phone Carmen Larry APRN, CNP Primary Care Provider + Social History Tobacco Use Types Packs/Day Years Used Date Smoking Tobacco: Never Assessed Comments Unknown Sex and Gender Information Value Date Recorded Sex Assigned at Not on file Legal Sex Female 10:12 AM CDT Gender Identity Not on file Sexual Orientation Not on file Last Filed Vital Signs Vital Sign Reading Time Taken Comments Blood Pressure 111/69 02/02/2024 8:40 AM PSYCHIATRY INSTRUCTOR Pulse 80 02/02/2024 8:40 AM PSYCHIATRY INSTRUCTOR Temperature 36 C (96.8 F) 02/02/2024 8:40 AM PSYCHIATRY INSTRUCTOR Respiratory Rate 16 02/02/2024 8:40 AM PSYCHIATRY INSTRUCTOR Oxygen Saturation 98% 02/02/2024 8:40 AM PSYCHIATRY INSTRUCTOR Inhaled Oxygen Concentration - - Weight - - Height - - Body Mass Index - - Plan of Treatment Health Maintenance Due Date Last Done Comments DEXA Bone Density 1954 Hepatitis C Virus (HCV) Screening 1955 Mammogram 1955 Colonoscopy 06/18/1999 Colorectal Cancer Screening 06/18/1999 Cologuard 2004 Immunochemical Fecal Occult Blood 2004 Pneumococcal Immunization (50+ years) (1 of 1 - PCV) 2004 Influenza Immunization (#1) 11/21/202312/20, 01/03/2021, 01/03/2020 SARS-COV-2 Immunization ( season) 2023 10/17/2021, 01/03/2021, 05/23/2020, Additional history exists Respiratory Syncytial Virus (RSV) Immunization (Adult) (1 - 1-dose 75+ series) 2029 DTaP/Tdap/Td Immunization Discontinued 11/12/2015 TdaP Immunization Completed 11/12/2015 Zoster Immunization Completed 03/17/2022, 2 Hepatitis B Immunization Aged Out No longer eligible based on patient's age to complete this topic Meningococcal Immunization (ACWY) Aged Out No longer eligible based on patient's age to complete this topic Rotavirus Immunization Aged Out No lo nger eligible based on patient's age to complete this topic Insurance MEDICARE [employer] Care Teams Interior Horticulturist Relationship Specialty Start Date End Date Carmen Larry APRN, DIRECTOR OF RELIGIOUS ACTIVITIES [address] [place] [address] PCP - General Advanced Practice Nurse 01/01/23
--- OUTSIDE RECORDS SUMMARY | 2024-07-12 00:44 | XMS_ITS | Data Portability ---
Author Organization [place] - [facility] [employer] for Smart[employer], Main Office Address [address] [place] [address] Assessment Encounter Date Assessment Date Assessment LastModified by Organization Details LastModified Time 09/23/2022 09/23/2022 [facility] Mammogram- with [facility] Cscope- cologuard 08/2021- normal, repeat 08/2024 DEXA- from [facility], osteoporosis Call office if worse, ER if life-threatening illness RTC 6 months She voiced understanding of plan and agrees [email or web address] Not available 09/23/2022 12:29:03 10/16/2022 10/16/2022 Call office if worse, ER if life-threatening illness Keep scheduled follow-up appointment She voiced understanding of plan and agrees [email or web address] Not available 10/16/2022 16:08:17 03/25/2023 03/25/2023 [facility] Mammogram- with [facility] Cscope- cologuard 08/2021- normal, repeat 08/2024 DEXA- from [facility], osteoporosis Call office if worse, ER if life-threatening illness RTC in May to establish with Dr. Reyes (will need labs ahead of her June Prolia shot) She voiced understanding of plan and agrees [email or web address] Not available 03/25/2023 10:18:18 05/29/2024 05/29/2024 06/15/2023: Chol 202, LDL 126 [email or web address] Not available 05/28/2024 13:49:34 Plan of Treatment Reminders Order Date Submit Date Provider Last Modified By Organization Details Last Modified Time Details Appointments Follow Up 15 2024 08:45Clementine rodriguez MD Not available Not available Not available Lab CMP, serum or plasma 2024 025 [facility], [address], [address], [place], [address], 05/29/2024 11:07:08 vitamin D, 25-hydrox y, total, serum 2024 025 [facility], [address], [address] [place], [place], [address], 05/29/2024 10:39:50 noninvasi ve colorecta l cancer DNA + occult blood screening , QL, stool 2024 025 [email or web address] [employer] (Cologuard Orders Only), [address], [address], [place], [address], 06/06/2024 10:59:57 CMP, serum or plasma 2024 025 [facility], [address], [address] [place], [place], [address], 05/29/2024 10:39:50 CBC w/ auto diff 2024 025 [facility], [address], [place], [place], [address], 05/29/2024 10:39:47 lipid panel, serum 2024 025 [facility], [address], [place], [place], [address], 05/29/2024 10:39:48 T4, free, serum 2024 025 [email or web address] [facility], [address], [address] [place], [place], [address], 06/06/2024 10:59:57 TSH, serum or plasma 2024 025 [facility], [address], [address], [place], [address], 05/29/2024 10:39:47 CMP, serum or plasma [address], [address], [address], [place], [address], 10/28/2023 09:25:07 CBC w/ auto diff [address], [facility] [address], [address], [place], [address], 11/29/2023 14:08:26 TSH, serum or plasma [address], [address], [place], [place], [address], 11/29/2023 14:08:26 vitamin D, 25-hydrox y, total, serum [email or web address], [facility] [address] [address], [place], [place], [address], 03/06/2024 10:56:55 lipid panel, serum [email or web address] [facility], [address], [address], [place], [address], 03/06/2024 10:58:25 lipid panel, serum [address] [facility] [email or web address] [facility], [address], [place], [place], [address], 01/04/2023 12:09:31 vitamin D, 25-hydrox y, total, serum 2022 023 [email or web address] [facility], [address], [place], [place], [address], 01/04/2023 12:09:31 CBC w/ auto diff 2022 023 [email or web address] [facility], [address], [place], [address], 01/04/2023 12:09:31 CMP, serum or plasma 2022 023 [email or web address] [facility], [address], [place], [address], 01/04/2023 12:09:31 TSH + free T4, serum 2022 023 [facility], [address], [address] [place], [place], [address], 12/30/2022 12:55:42 Referral gynecolog ist referral - Please call patient to schedule an appointme nt. Thank garcia. 2024 025 [facility] Lilian Jenkins MD, [address] [facility] [address], [place], [address], 05/29/2024 11:23:49 gynecolog ist referral 2023 024 [email or web address] Lilian Jenkins MD, [address], [address], [place], [address], 12/21/2023 09:10:26 Procedures None recorded. Surgeries None recorded. Imaging DEXA, axial skeleton 2023 024 [facility] (Mammography) , [address], [place], [address], 11/16/2023 16:30:26 Medication Orders cefdinir 300 mg capsule [email or web address] [facility] [address] [id number], [address] [facility], [place], [place], [id number], 05/26/2023 10:05:31 Medrol (Fredis) 4 mg tablets in a dose pack 2023 024 [email or web address] [id number], [address], [place], [place], [id number], 05/26/2023 10:05:37 cefdinir 300 mg capsule [address] [facility]758, [address], [place], [place], [id number], 05/26/2023 10:05:31 Medrol (Fredis) 4 mg tablets in a dose pack [address] [facility], [address], [place], [place], [id number], 05/26/2023 10:05:37 Patient TargetsNo targets recorded. Patient Instructions Encounter Date Encounter Id Patient Instructions Last Modified By Organization Details Last Modified Time 09/23/2022 [id number] dementia rating scale-2* Not available 09/23/2022 12:29:59 alcohol misuse* [email or web address] Not available 09/23/2022 12:29:58 depression screening* [email or web address] Not available 09/23/2022 12:29:59 multi-dimensiona l health assessment questionnaire* [email or web address] Not available 09/23/2022 12:29:58 Personalized a lt Plan and Screening Recommendations Advance Directives - Do you have one? Yes Advance Directives - Do we have your advance directive on file in your health record? No, please bring in a copy at your earliest convenience Primary Prevention/Interven tion (prevents or decreases the chance of common diseases from occurring) Smoking Risk: Non Smoker Alcohol Misuse Screening: Negative Weight: Appropriate Physical activity: Appropriate physical activity Nutrition: Good Fall Risk (screened today): Low Vaccines Pneumococcal: Ordered Recommended today Recommended today, but you have declined Influenza: Your next one in the fall of this year Chronic Disease Risks Stroke: Low Risk I have no recommendations Heart Attack: Low risk I have no recommendations Clogging of the Arteries: Low risk I have no recommendations Diabetes: Low Risk I have no recommendations Secondary Prevention/Interven tion (detects treatable diseases before they may cause symptoms, disability, or ) Breast Cancer Screening with mammogram: Cervical/Uterine/Ov leni Cancer Screening: No screening necessary Osteoporosis Screening: Date Screening Last Performed: Colon Cancer Screening: Colonoscopy Fecal Occult Blood Cologuard (DNA stool test) Date Screening Last Performed: Cologuard negative 09/11/21 Eye Disease Screening: Dementia Risk: Low I have no recommendations Depression Screening: Negative Not available 09/23/2022 11:05:05 Reason for Referral Radio Host Referral for Gy necologic examination Referring Physician: Shanell Reyes Internal Medicine, Encounter Date: 05/26/2023 Radio Host Referral for Gy necologic examination Please call patient to schedule an appointment. Gabe garcia. Referring Physician: Shanell Reyes Internal Medicine, Encounter Date: 05/29/2024 Results Created Date Observation Date Name Description Value Unit Range Abnormal Flag Note LastModifiedBy Organization Detail LastModifiedTime 10/12/19 24 10/08/2023 DEXA, axial skele ton No observ ation record ed. [address] (Mammography) [address], [place], [address], 11/16/2023 16:32:00 10/12/19 24 10/08/2023 DEXA, axial skele ton No observ ation record ed. [address] (Mammography) [address], [place], [address], 11/16/2023 16:32:23 Result Notes None recorded. Problems Name Problem SNOMED Code Status Onset Date Resolution Date Notes Provider Name and Address Organization Details Recorded Time Acute suppurativ e otitis media without spontaneou s rupture of ear drum 26687199 Completed Not Available [facility] 3 06:45:29 Fluid level behind tympanic membrane Completed Not Available [facility] 3 06:45:29 Mitral cusp prolapse 551900615 Completed 201702/07/2020 Not Available [facility] 3 06:45:29 Dyspnea 429471889 Completed 201702/07/2020 Not Available [facility] 3 06:45:29 Strain of muscle of upper limb 736734422 Completed 201702/07/2020 Not Available [facility] 3 06:45:29 Knee pain Completed Not Available [facility] 3 06:45:29 Viral disease 74620397 Completed Not Available [facility] 3 06:45:29 Closed fracture of lateral malleolus 00304198 Completed Not Available [facility] 3 06:45:29 Sinusitis 18565059 Completed Not Available [facility] 3 06:45:30 Fever 698065765 Completed Not Available [facility] 3 06:45:30 Fracture of lower leg 909121770 Completed Not Available [facility] 3 06:45:30 Cough 04011976 Completed Not Available [facility] 3 06:45:30 Upper respirator y infection 96915384 Completed Not Available [facility] 3 06:45:30 Posterior rhinorrhea 03622166 Completed Not Available [facility] 3 06:45:30 Tick bite 45024559 Completed Not Available [facility] 3 06:45:30 Postmenopa usal osteoporos is 553375367 Active 2022 LUANNE Wade, [employer] 3 10:14:40 Vitamin D deficiency 65012588 Active 2022 [facility] [address], [address], [address] , [facility] 3 18:51:11 Anxiety 32234719 Active 2022 [facility] [address], [address], [place], [address] , [employer] [facility] 3 18:51:23 Osteoporos is 09078239 Active 2022 [facility] [address], [address], [place], [address] , [employer] [facility] 3 18:51:40 Fatigue 03994042 Active 2022 [facility] [address], [address] [place] [address], [address] , [facility] [employer] [facility] 3 18:52:13 Chest pain 99679914 Active 2022 [facility] [address], [address], [address] , [facility] 3 18:52:20 Mitral valve prolapse 454092930 Active 2022 [facility] [address], [address], [place], [address] , [facility] [employer] [facility] 3 18:52:26 Acute sinusitis 27682615 Active 2022 [facility] [address], [address], [address] , [facility] [employer] [facility] 3 15:32:16 Serous otitis media 45522154 Active 2022 [facility] [address], [address], [address] , [facility] [employer] [facility] 3 15:32:25 Serous otitis media 96506817 Active 2022 [facility] [address], [place] [address], [place], [address] , [facility] 3 15:32:26 Hyperlipid emia 13063714 Active 2022 Nicol hays, [facility] 3 10:00:17 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 Procedures Surgical History Date Name Laterality Status Provider Name and Address Organization Details Recorded Time 3 Medicare Wellness CPT Code, subsequent completed Faith Uriarte RN [place] [facility] [place] [facility] 09/23/2022 10:58:29 2 Unlisted procedure rectum completed Not Available [facility] 05/20/2022 06:39:53 7 Masectomy completed Not Available [facility] 06:39:53 Imaging Results Imaging Date Name Status LastModified by Organiz ation Details LastModified Time 10/08/2023 DEXA, axial skeleton completed [address] (Mammography) [address], [place], [address], 11/16/2023 16:32:00 10/08/2023 DEXA, axial skeleton active [address] (Mammography) [address], [place], [address], 11/16/2023 16:32:23 Procedure Notes None recorded. Medical Equipment None Reported. Allergies No known drug allergies Medications Name Sig Start Date Stop Date Status Note LastModified by Organization Details LastModified Time flowflex covid-19 ag home t TEST DIRECTED PER MANUFACTU RER AND CDC GUIDANCE 09/23 completed Not Available Not Available Not Available amoxicillin 500 mg capsule TAKE 1 CAPSULE BY MOUTH TWICE DAILY FOR 7 DAYS active Not Available Not Available No t Available methocarbam ol 500 mg tablet Take 2 tablets 4 times a day by oral route as needed. active Not Available Not Available No t Available doxycycline hyclate 100 mg capsule Take 1 capsule twice a day by oral route for 10 days. 08/28 completed Not Available Not Available Not Available azithromyci n 250 mg tablet TAKE 2 TABLETS (500 MG) BY ORAL ROUTE ONCE DAILY FOR 1 DAY THEN 1 TABLET (250 MG) BY ORAL ROUTE ONCE DAILY FOR 4 DAYS active Not Available Not Available No t Available prednisone 20 mg tablet TAKE 3 TABLETS BY MOUTH DAILY FOR 5 DAYS active Not Available Not Available No t Available alendronate 70 mg tablet TAKE 1 TABLET BY MOUTH ONCE A WEEK IN THE MORNING WITH A FULL GLASS OF WATER, 30 MINUTES BEFORE THE FIRST MEAL, BEVERAGE OR MEDICATIO N OF THE DAY. REMAIN UPRIGHT 06/09 completed Not Available Not Available Not Available amoxicillin 875 mg tablet Take 1 tablet twice a day by oral route for 10 days. active Not Available Not Available No t Available benzonatate 100 mg capsule TAKE 1 TO 2 CAPSULES BY MOUTH THREE TIMES DAILY NEEDED 02/06 completed Not Available Not Available Not Available oseltamivir 75 mg capsule TAKE 1 CAPSULE BY MOUTH EVERY 12 HOURS FOR 5 DAYS 02/06 completed Not Available Not Available Not Available buspirone 10 mg tablet active Not Available Not Available Not Available polymyxin B sulfate 10,000 unit-trimet hoprim 1 mg/mL eye drops INSTILL 1 DROP IN BOTH EYES EVERY 6 HOURS FOR 7 DAYS 03/25 completed Not Available Not Available Not Available docusate sodium 100 mg capsule TAKE 1 CAPSULE BY MOUTH TWICE DAILY NEEDED 08/27 completed Not Available Not Available Not Available scopolamine 1 mg over [address] ONE PATCH ON THE SKIN EVERY THIRD DAY. 05/25 completed Not Available Not Available Not Available methylpredn isolone 4 mg tablets in a dose pack FOLLOW PACKAGE DIRECTION S 05/25 completed Not Available Not Available Not Available cefdinir 300 mg capsule TAKE 1 CAPSULE BY MOUTH EVERY 12 HOURS FOR 10 DAYS 05/25 completed Not Available Not Available Not Available fluticasone propionate 50 mcg/actuati on nasal spray,suspe nsion Inhale 2 sprays every day by intranasa l route in the morning for 30 days. 02/06 completed Not Available Not Available Not Available amoxicillin 875 mg-jimu m clavulanate 125 mg tablet Take 1 tablet twice a day by oral route for 10 days. active Not Available Not Available No t Available buspirone 15 mg tablet TAKE 1 TABLET BY MOUTH EVERY DAY active Not Available Not Available No t Available oxycodone 5 mg tablet 08/27 completed Not Available Not Available Not Available multivitami n 1 PO QD 09/17 completed Not Available Not Available Not Available Prolia 60 mg/mL subcutaneou s syringe inject 60 mg SQ once every 6 months 2023 active Not Available Not Available Not Avai lable Vitamin D3 50 mcg (2,000 unit) capsule Take 1 capsule every day by oral route. 02/22/ 2016 06/29 /2022 completed Not Available Not Available Not Available ID NOW COVID-19 Test Kit TEST DIRECTED TODAY 08/27 completed Not Available Not Available Not Available Flowflex COVID-19 Antigen Home Test kit [facility] AND CDC GUIDANCE 09/23 completed Not Available Not Available Not Available Vitals Date Recorded Body height Body mass index (BMI) Body weight Body temperature Heart rate Oxygen saturation Oxygen saturation in Arterial blood by Pulse oximetry Systolic blood pressure Diastolic blood pressure Provider Name and Address Organization Details Last Updated DateTime 3 157.48 cm 22.3 kg/m2 95288.2 7 g 98.6 [degF] 84 /min 98 % 98 % 116 mm[Hg] 70 mm[Hg] Lorena Little [place] [facility] [employer] [facility] 3 10:23:12 Date Recorded Pain severity - 0-10 verbal numeric rating [Score] - Reported Provider Name and Address Organization Details Last Updated DateTime 09/23/2022 0 Faith Uriarte RN [facility] [employer] [facility] 09/23/2022 10:59:11 Date Recorded Body height Body mass index (BMI) Body weight Body temperature Heart rate Oxygen saturation Oxygen saturation in Arterial blood by Pulse oximetry Systolic blood pressure Diastolic blood pressure Provider Name and Address Organization Details Last Updated DateTime 3 157.48 cm 22.1 kg/m2 24106.6 8 g 97.6 [degF] 96 /min 98 % 98 % 112 mm[Hg] 68 mm[Hg] Lorena Little [place] [facility] [employer] [facility] 3 15:24:29 Date Recorded Body height Body mass index (BMI) Body weight Body temperature Heart rate Oxygen saturation Oxygen saturation in Arterial blood by Pulse oximetry Systolic blood pressure Diastolic blood pressure Provider Name and Address Organization Details Last Updated DateTime 4 157.48 cm 21.9 kg/m2 38489.0 8 g 97.8 [degF] 90 /min 98 % 98 % 112 mm[Hg] 72 mm[Hg] Lorena Little [place] [facility] [employer] [facility] 4 09:58:27 Date Recorded Body height Body mass index (BMI) Body weight Body temperature Heart rate Systolic blood pressure Diastolic blood pressure Provider Name and Address Organization Details Last Updated DateTime 4 157.48 cm 22.1 kg/m2 97864.6 8 g 97.3 [degF] 84 /min 120 mm[Hg] 76 mm[Hg] LUANNE Griffin [employer] 4 10:08:13 Date Recorded Body height Body mass index (BMI) Body weight Body temperature Respiratory rate Heart rate Oxygen saturation Oxygen saturation in Arterial blood by Pulse oximetry Systolic blood pressure Diastolic blood pressure Provider Name and Address Organization Details Last Updated DateTime 5 157.48 cm 19.6 kg/m2 90339.3 8 g 97.4 [degF] 16 /min 84 /min 99 % 99 % 106 mm[Hg] 74 mm[Hg] Ifeoma Harris RN [place] [employer] 5 10:26:12 Social History Question Answer Notes LastModified by Organization Details LastModified Time Tobacco Smoking Status Never Smoker NELA Reyna, [employer] 10/16/2022 15:15:45 Do You Have An Advance Directive? Yes Information not available 09/23/2022 What Is Your Level Of Alcohol Consumption? None Information not available 09/23/2022 Do You Wear A Helmet When Biking? Yes [email or web address] Information not available 10/16/2022 Are You Blind Or Do You Have Difficulty Seeing? No [email or web address] Information not available 10/16/2022 What Is Your Level Of Caffeine Consumption? Occasional [id number] Information not available 05/20/2022 In The 14 Days Before Symptom Onset, Have You Had Close Contact With A Laboratory-confi rmed COVID-19 While That Case Was Ill? No [email or web address] Information not available 10/16/2022 In The 14 Days Before Symptom Onset, Have You Had Close Contact With A Person Who Is Under Investigation For COVID-19 While That Person Was Ill? No Information not available 10/16/2022 Are You Deaf Or Do You Have Serious Difficulty Hearing? No [email or web address] Information not available 10/16/2022 What Type Of Diet Are You Following? REGULAR [id number] Information not available 05/20/2022 What Is The Highest Grade Or Level Of School You Have Completed Or The Highest Degree You Have Received? 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 No [email or web address] Information not available 10/16/2022 What Is The Fluoride Status Of Your Home? Unknown [email or web address] Information not available 10/16/2022 Are There Any Guns Present In Your Home? No [email or web address] Information not available 10/16/2022 Do You Use Insect Repellent Routinely? Yes [email or web address] Information not available 10/16/2022 Where Do You Live? SingleLevelHouse [email or web address] Information not available 10/16/2022 Presence Of Domestic Violence No Information not available 09/23/2022 Guns Present In The Home? No Information not available 09/23/2022 Are You Able To Care For Yourself? Yes Information not available 09/23/2022 Are You Blind Or Do Yo Have Difficulty Seeing? No Information not available 09/23/2022 Are You Deaf Or Do You Have Serious Difficulty Hearing? No Information not available 09/23/2022 General Stress Level? Low Information not available 09/23/2022 What Was The Date Of Your Most Recent Tobacco Screening? 05/26/2023 [email or web address] Information not available 05/26/2023 Do You Have Any Pets? No [email or web address] Information not available 10/16/2022 What Is Your Relationship Status? [id number] Information not available 05/20/2022 Do You Use Your Seat Belt Or Car Seat Routinely? Yes Information not available 10/16/2022 Do You Have Smoke And Carbon Monoxide Detectors In Your Home? Yes [email or web address] Information not available 10/16/2022 Are You Passively Exposed To Smoke? No [email or web address] Information not available 10/16/2022 Are There Any Smokers In Your House? No [email or web address] Information not available 10/16/2022 Do You Feel Stressed (tense, Restless, Nervous, Or Anxious, Or Unable To Sleep At Night)? [id number] [email or web address] Information not available 10/16/2022 Do You Use Any Illicit Or Recreational Drugs? No [email or web address] Information not available 10/16/2022 Do You Use Sunscreen Routinely? Yes [email or web address] Information not available 10/16/2022 Has Tobacco Cessation Counseling Been Provided? No [email or web address] Information not available 10/16/2022 Have You Recently Traveled Abroad? No [place] 05/01/22 [email or web address] Information not available 10/16/2022 Do You Have Any Dietary Restrictions? No [email or web address] Information not available 10/16/2022 Do You Or Have You Ever Used Any Other Forms Of Tobacco Or Nicotine? No [email or web address] Information not available 10/16/2022 Sex: Female Functional Status Question Answer Note LastModified by Organizat ion Details LastModified Time Do you have difficulty walking or climbing stairs? No [email or web address] Information not available 10/16/2022 Do you have transportation difficulties? No Information not available 10/16/2022 Are you able to walk? YESWOREST [email or web address] Information not available 10/16/2022 Do you have difficulty doing errands alone? No [email or web address] Information not available 10/16/2022 Are you able to care for yourself? Yes [email or web address] Information n ot available 10/16/2022 Do you have difficulty dressing or bathing? No Information not available 10/16/2022 What is your exercise level? Moderate [id number] Information not available 05/20/2022 Mental Status Question Answer Note LastModified by Organization D etails LastModified Time Do you have difficulty concentrating, remembering or making decisions? No [email or web address] Information no t available 10/16/2022 Family History Relationship Description Onset Age of this Age Resolved Age Notes LastModified by Organization Details LastModified Time Father No current problems or disability [id number] Not available 05/20/2022 06:39:55 Mother No current problems or disability [id number] Not available 05/20/2022 06:39:55 Medical History Condition Response EYE PROBLEMS Y OSTEOPOROSIS Y Gynecological HistoryNo gynecological history recorded. Obstetrics History GPAL:G 0 P 0 0 0 0 Immunizations Vaccine Type Date Status Note Provider Nam e and Address Organization Details Recorded Time zoster recombinant 2 completed Not Available [facility] [facility] 05/20/2022 06:51:48 zoster recombinant 2 completed Not Available [facility] 05/20/2022 06:51:48 Influenza, split virus, quadrivalent, PF 2 completed Not Available [facility] 05/20/2022 06:51:48 COVID-19, mRNA, LNP-S, PF, 30 mcg/0.3 mL dose 1 completed Not Available [facility] 05/20/2022 06:51:49 COVID-19, mRNA, LNP-S, PF, 30 mcg/0.3 mL dose 1 completed Not Available [facility] 05/20/2022 06:51:49 Influenza, high-dose, trivalent, PF 0 completed Not Available [facility] 05/20/2022 06:51:49 Tdap 6 completed Not Available [facility] 05/20/2022 06:51:49 Past Encounters Encounter ID Performer Location Encounter Start Date Encounter Closed Date Diagnosis/Indication Diagnosis SNOMED-CT Code Diagnosis ICD10 Code Diagnosis Note [id number] [facility] [place] [address] [place] [address] 06/09/2021 00:00:00 06/09/2021 13:52:23 [id number] [facility] [place] [address] [place] [address] 08/27/2021 00:00:00 08/27/2021 10:34:42 [id number] [facility] [place] [address] [place] [address] 09/19/2021 00:00:00 09/19/2021 12:44:16 [id number] [facility] [place] [address] [place] [address] 04/01/2022 00:00:00 04/01/2022 14:52:42 [id number] [facility] [place] [address] [place] [address] 04/30/2022 00:00:00 04/30/2022 15:03:36 [id number] [facility] Internal Med [place] [address] [place] [address] 05/14/2022 00:00:00 05/14/2022 11:28:17 [id number] Taniya Mosquera MD [facility] [place] [address] [place] [address] 06/15/2022 09:49:06 06/15/2022 10:23:06 Postmenopausal osteoporosis 301274362 M81.0 Patient tolerated prolia injection without pain or site reaction. Will send with [facility]- to monitor calcium levels. She will return in 6 months for her second injection. [id number] [facility] Internal [facility] [place] [address] [place] [address] 07/15/2022 10:59:45 07/15/2022 11:22:29 Vitamin D deficiency 64353251 E55.9 on supplement - has orders to check labs from Dr. Mosquera History of malignant neoplasm of breast 427588636 Z85.3 follows [facility]- Dr. Hdez ers/p mastectomy mammograms through [facility] Anxiety 57113331 F41.9 on buspar from GYNcall office if any change in mood or behavior Osteoporosis 38517991 M8 1.0 on Proliafoll owing endo- Dr. Mosquera case into staff to see if we can help her get this through the infusion center for less cost Chest pain 27431738 R07. 9 now following cardiology - Dr. Corado/p testing- all normal Mitral valve prolapse 40 3384513 I34.1 diagnosed in 30s, has not been following cardiology , no medscardio logy appt as above [id number] [facility] Internal [facility] [place] [address] [place] [address] 09/23/2022 10:13:38 09/23/2022 10:53:54 Vitamin D deficiency 10920416 E55.9 on supplement History of malignant neoplasm of breast 107406836 Z85.3 follows [facility]- Dr. Hdez ers/p mastectomy mammograms through [facility] Anxiety 18330429 F41.9 on buspar from GYNcall office if any change in mood or behavior Osteoporosis 49032641 M8 1.0 on Prolia- she is aware of side effects, risks, benefitsno longer wants to see [facility] will now take over her prolia per her request and get this set up at the infusion center- she is due in November Chest pain 35594355 R07. 9 now following cardiology - Dr. Corado/p testing- all normal Mitral valve prolapse 40 0674835 I34.1 diagnosed in 30s, has not been following cardiology , no medscardio logy appt as above Hyperlipid emia screening 209731018 Z13.220 Long-term drug therapy 368718786 Z79.899 Adult heal th examination 001294306 Z00.00 Screening for disorder 354436032 Z13.9 [id number] [facility] Younger [facility] Internal Med [place] [address] [place] [address] 10/16/2022 15:14:40 10/16/2022 15:32:15 Acute sinusitis 97842235 J01.90 She has difficulty swallowing Augmentin pills Start cefdinir and Medrol Dosepak Continue OTC meds as well, can add Flonase Call office if no improvemen t after meds Serous otitis media 8032 7007 H65.90 As above [id number] [facility] Internal Med [place] [address] [place] [address] 03/25/2023 09:51:14 03/25/2023 10:17:33 Vitamin D deficiency 17387379 E55.9 on supplement Anxiety 22556928 F41.9 on buspar from GYNcall office if any change in mood or behavior Osteoporosis 28972019 M8 1.0 on Prolia- she is aware of side effects, risks, benefitsno longer wants to see Endois now getting Prolia at [facility] infusion center in [place]- due in June History of malignant neoplasm of breast 978629620 Z85.3 follows [facility]- Dr. Hdez ers/p mastectomy mammograms through [facility] Chest pain 22993791 R07. 9 now following cardiology - Dr. Corado/p testing- all normal Mitral valve prolapse 40 6824190 I34.1 diagnosed in 30s, has not been following cardiology , no medscardio logy appt as above Acute sinusitis 42071765 J01.90 start cefdinir and Medrol DosepakCon tinue OTC meds as well, can add FlonaseCal l office if no improvemen t after meds [id number] Shanell spring MD [facility] Internal Med [place] [address] [facility] [place] [address] 05/26/2023 09:56:04 05/26/2023 10:28:01 Screening - NAD 673259734 Z13.9 C-scope: Cologuard negative 09/11/2021 , next in 08/2024 Mammogram: 03/27/2022 : Neg [facility], states that Dr Hampton er does thisDEXA: Get this, on proliaWWE: Get this done sees her OB Get yearly flu shotGet TdapGet COVID 19 vaccine and its boostersGe t RSV vaccineGet shingrix vaccine RTC in 12 months as per her wishes, do labs, ER if worse, she did verbalize her understand ing of the above 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 9 ECHO 07/01/2022 CT calcium score 07/01/2022 Dr Dowd [facility] 06/02/2022 Hyperlipid emia screening 570149384 Z13.220 Get labs Osteoporosis 31451974 M8 1.0 Vitamin D deficiency 347 00209 E55.9 Long-term drug therapy 156653507 Z79.125 [id number] Shanell spring MD [facility] [place] [address] [facility] [address] [place] [address] 05/29/2024 10:13:50 05/29/2024 11:07:41 Screening - NAD 992592047 Z13.9 C-scope: Cologuard negative 09/11/2021 , next in 08/2024 Mammogram: 03/27/2022 : Neg [facility], states that Dr Hampton er does this DEXA: 10/08/2023 On prolia WWE: Get this done sees her OB Get yearly flu shotGet TdapGet COVID 19 vaccine and its boostersGe t RSV vaccineGet shingrix vaccine RTC in 4 months as per her wishes, do labs, ER if worse, she did verbalize her understand ing of the above Herniation of rectum into vagina 155393986 N81.6 Dr Osborne, s/p surgery 05/13/2021 , states that she is doing well, no further apts Anxiety 38710300 F41.9 On buspirone 15mg daily, not suicidal or homicidalS een by Dr Yadira Barros MD Gynecologi c examination 25680342 Z01.419 History of malignant neoplasm of breast 651199504 Z85.[address] Hampton er Chest pain 28252251 R07. 9 ECHO 07/01/2022 CT calcium score 07/01/2022 Dr Dowd [facility] 06/02/2022 Vitamin D deficiency 347 23607 E55.9 Hyperlipidemia 52971126 E78.5 Not on any medsDo labs Screening for malignant neoplasm of colon 708129668 Z12.11 Adult heal th examination 054648035 Z00.00 Osteoporosis 38478263 M8 1.0 On proliaGet CMP post prolia Health Concerns Section Related Observation LastModified by Organization Detnoelle ls LastModified Time None Recorded Concern Status LastModified by Organization Details LastModified Time None Recorded Advance Directives Directive Y: Payers Encounter Date Sequence Insurance Name Policy Number Policy Daniel Covered Member ID Daniel Member ID Guarantor Name 09/23/2022 1 [place] Kenyetta Amin [id number] 5 Kenyetta Blood Eloisa 09/23/2022 2 [employer] (MEDICARE SUPPLEMENT) Kenyetta Amin [id number] Kenyetta J Eloisa 10/16/2022 1 [place] Kenyetta Blood Eloisa [id number] Kenyetta Blood Eloisa 10/16/2022 2 [employer] (MEDICARE SUPPLEMENT) Kenyetta Amin [id number] Kenyetta Caitie Amin 03/25/2023 1 [place] Kenyetta Blood Eloisa [id number] Kenyetta Blood Eloisa 03/25/2023 2 [employer] (MEDICARE SUPPLEMENT) Kenyetta Amin [id number] Kenyetta Caitie Amin 05/26/2023 1 [place] Kenyetta J Eloisa [id number] 5 Kenyetta Blood Eloisa 05/26/2023 2 [employer] (MEDICARE SUPPLEMENT) Kenyetta Amin [id number] Kenyetta Caitie Amin 05/29/2024 1 [place] Kenyetta Blood Eloisa [id number] Kenyetta Blood Eloisa 05/29/2024 2 [employer] (MEDICARE SUPPLEMENT) Kenyetta Caitie Amin [id number] Kenyetta J Eloisa Notes Date Note Type Note Provider Name and Address Organization Details Recorded Time 09/23/2022 text/html Kenyetta presents today for follow-up. She is also due for her Medicare annual wellness visit. Her anxiety is well controlled on the buspirone from her gynecology teacher. She denies any SI or HI today. She no longer would like to see Endo for her Prolia and would like us to order this for her instead. She would prefer to go to the [facility] center so it can be done on her medical benefit. She is not due until November. She has had no further issues with chest pain. She is due for labs. Mammograms are done over at [facility]. [facility] [address] [place] [address], [facility] [address], [place], [address], [facility] [employer] 09/23/2022 12:30:38 10/16/2022 text/html Kenyetta presents today for acute visit. She reports about 3 weeks ago she started having some left ear pain. She took some Tylenol for that eventually it got a little bit better but is still bothering her. About 2 weeks ago she started having sinus pressure and sinus drainage. She does not normally struggle with allergies. She denies any fever, cough, chest pain or any GI symptoms. She does have a little bit of scratchy throat but denies any issues with swallowing. [facility] [address], [place], [address], [employer] 10/16/2022 16:08:30 03/25/2023 text/html Kenyetta presents today for follow-up. She reports she decided not to take the rosuvastatin. She instead wants to try working on diet and exercise for the cholesterol. Anxiety is well controlled on the buspirone which is prescribed by her gynecology teacher. She denies any SI or HI. She complains today of a sinus infection. She started with a cold about 2 or 3 weeks ago which has mostly resolved, however she is still having sinus pressure and sinus pain. She reports she had a little bit of vertigo, though that is now resolved today. Has tried multiple bobf-jzi-yagtgry meds with no relief. [facility] [address], [place], [address], [employer] 03/25/2023 10:19:13 05/26/2023 text/html OV 05/26/2023:Here to establish care Past Hx:AnxietyOP Here to discuss above and get labs, states that she is doing very well and is now due for her prolia shot in one month and has to do her labsShe does f/u with the breast surgeon and has her own OB also Shanell Reyes MD [address], [place], [address], [employer] 05/26/2023 18:07:32 05/29/2024 text/html OV 05/26/2023:Here to establish care Past Hx:AnxietyOP Here to discuss above and get labs, states that she is doing very well and is now due for her prolia shot in one month and has to do her labsShe does f/u with the breast surgeon and has her own OB also OV 05/29/2024: Here for her f/u apt she is doing well today Shanell Reyes MD [address] [place] [address], [place] [address], [place], [address], [facility] 05/29/2024 11:10:44 OBGyn Episode No OBEpisode recorded.
--- OUTSIDE RECORDS SUMMARY | 2024-07-12 00:44 | XMS_ITS | CONTINUITY OF CARE DOCUMENT ---
Author Name kostamathieunaomy Address Unknown Organization [facility] Address [address] [place] [address] Phone [phone] Care Team Providers Care Veterinary Nurse Name Role Phone Nile ATKINSON, Nikki Unavailable [phone] CHARLEEN LOW Unavailable [phone] HOPBREEZY CHARLEEN Unavailable [phone] PROBLEMS Condition Status Date Provider Notes Chest pain active Korey Ahmedzai Dyspnea on exertion active Korey Ahmedzai Fatigue active Korey Ahmedzai Hx of breast cancer active Nikki Dowd MD ENCOUNTERS Date Type Provider Location Encounter Diagnosis - In-person encounter Office Visit Nikki Dowd MD [facility] Hx of breast cancer VITAL SIGNS Date Observation Value Provider Body Mass Index (Ratio) 22.09 kg/m2 Ramiro Dowd MD blood pressure, diastolic 79 mm[Hg] Paloma reillyLogsafia blood pressure, systolic 124 mm[Hg] Ame Mcpherson blood pressure, diastolic 79 mm[Hg] Paloma Mcgarry blood pressure, systolic 124 mm[Hg] Ame Mcpherson blood pressure, cuff size regular Sh fatuma Valverde blood pressure, diastolic 79 mm[Hg] Sh aroldoromario Nicolle blood pressure, systolic 124 mm[Hg] She lucie Valverde oxygen saturation, oximetry 96 % Kavita Valverde pulse rate 79 /min Kavita Valverde respiratory rate E&M 18 /min Kavita Valverde weight E&M 120.8 [lb_av] Kavita Valverde height E&M 62 [in_i] Kavita Valverde SOCIAL HISTORY Date Observation Value Provider smoking status Never smoker Kavita Valverde social history reviewed E&M reviewed - no changes required Korey Ahcarolynzai INSURANCE PROVIDERS Payer name Policy type / Coverage type [place] Medicare [id number] [employer] Other [id number] ADVANCE DIRECTIVES Name Date DISCUSSED - NO DECISION MADE TREATMENT PLAN Date Name Performer [id number],S, Korey Ahmedza i [id number],S, Korey Davenportmedza i [id number],S, Korey Ahmedza i Cardiology Korey Ahmedzai Cardiology Korey Davenportmedzai Cardiology Korey Michaelzai Date Name CT, Coronary Calcium Score Complete Echo HISTORY OF PROCEDURES Procedure Date Procedure Name Provider Procedure Notes S ieshaus CT- Coronary CA score Nikki Dowd MD completed EKG Nikki Dowd MD completed
--- OUTSIDE RECORDS SUMMARY | 2024-07-12 00:45 | XMS_ITS | Clinical Summary ---
Author Organization [facility] Address [address] [place] [address] Care Team Providers Care Political Cartoonist Name Role Phone No, Physician Primary Care Provider [phone] Allergies No known active allergies Medications busPIRone (BUSPAR) 7.5 mg tabletIndicatio ns:Generalized Anxiety Disorder Take 1 tablet (7.5 mg total) by mouth vp information technology before breakfast Active cholecalciferol (VITAMIN D-3) 2,000 unit tabletIndicatio ns:Prevention of Vitamin D Deficiency Take by mouth vp information technology before breakfast Active multivitamin tabletIndicatio ns:Vitamin Deficiency Prevention,supp lement Take 1 tablet by mouth vp information technology before breakfast Active denosumab (Prolia) 60 mg/mL syringe Prolia 60 mg/mL subcutaneous syringe inject 60 mg SQ once every 6 months Active Active Problems Problem Noted Date Diagnosed Date History of right total mastectomy 04/12/2024 Heterogeneously dense tissue of both breasts on mammography 04/12/2024 Rectocele 02/17/2021 Overview (02/17/2021): Added automatically from request for surgery [id number] History of right breast cancer 12/16/2017 Immunizations Immunization Administration Dates Next Due Influenza, Quadrivalent, Hig h Dose, Preservative Free, Intrr 01/03/2021 Influenza, Quadrivalent, Spl it, Preservative Free, Intramuscular 12/31/2021 Influenza, Trivalent, High D ose, Split, Preservative Free, Intramuscular 01/03/2020 Tdap 11/12/2015 ZOSTER Recombinant 03/17/2022,12/31/2021 Surgical History Surgery Date Site/Laterality Comments SIMPLE MASTECTOMY Simple Mastectomy Right Breast - (Added by TW Conv) BREAST RECONSTRUCTION 03/22/2007 - 03/21/2008 Medical History Medical History Date Comments Breast cancer (HCC) 2007 right Motion sickness PONV (postoperative nausea and vomiting) sucess with scoplamine patch History of right breast cancer 12/16/2017 Family History Medical History Relation Name Comments Asthma Father Family history of asthma - (Added by TW Conv) Diabetes Father Family history of diabetes mellitus - (Added by TW Conv) Hyperlipidemia Father High choleste rol - (Added by TW Conv) Asthma Mother Family history of asthma - (Added by TW Conv) Diabetes Mother Family history of diabetes mellitus - (Added by TW Conv) Hyperlipidemia Mother High choleste rol - (Added by TW Conv) Breast cancer Sister Adenocarcinoma of breast - (Added by TW Conv) Relation Name Status Comments Father Mother Sister Social History Tobacco Use Types Packs/Day Years Used Date Smoking Tobacco: Never Smokeless Tobacco: Never Tobacco Cessation:Counseling Given: Not Answered Alcohol Use Standard Drinks/Week Comments No 0 (1 standard drink = 0.6 oz pur e alcohol) Social Connection and Isolation Panel [NHANES] A nswer Date Recorded In a typical week, how many times do you talk on the phone with family, friends, or neighbors? Three times a week 05/12/19 How often do you get togethe r with friends or relatives? Once a week 05/12/2021 How often do you attend chur or baptism services? 1 to 4 times per year 05/12/2021 Do you belong to any clubs o r organizations such as yarsani groups, unions, fraternal or athletic groups, or school groups? No 05/12/2021 How often do you attend meet ings of the clubs or organizations you belong to? Never 05/12/2021 Are you , , di vorced, , never , or living with a partner? 05/12/2021 AUDIT-C Answer Date Recorded Q1: How often do you have a drink containing alc ohol? Never 05/12/2021 Q2: How many drinks containi ng alcohol do you have on a typical day when you are drinking? 1 or 2 05/12/2021 Q3: How often do you have six or more drinks on one occasion? Never 05/12/2021 Overall Financial Resource Strain (CARDIA) Answe r Date Recorded How hard is it for you to pa y for the very basics like food, housing, medical care, and heating? Not very hard 05/12/2021 Hunger Vital Sign Answer Date Recorded Within the past 12 months, y ou worried that your food would run out before you got the money to buy more. Sometimes true Within the past 12 months, t he food you bought just didn't last and you didn't have money to get more. Sometimes true PRAPARE - Transportation Answer Date Re corded In the past 12 months, has l ack of transportation kept you from medical appointments or from getting medications? No 04/23 In the past 12 months, has l ack of transportation kept you from meetings, work, or from getting things needed for daily living? No 05/12/2021 Comments No Sex and Gender Information Value Date Recorded Sex Assigned at Not on file Legal Sex Female 1:42 AM RISK LEAD Gender Identity Female 01/25/2021 9:57 PM CDT Sexual Orientation Straight 01/25/2021 9: 57 PM CDT Obstetrics History Last Filed Vital Signs Vital Sign Reading Time Taken Comments Blood Pressure 128/64 04/12/2024 9:40 AM RISK LEAD Pulse 85 05/13/2021 9:50 AM RISK LEAD Temperature 36.6 C (97.9 F) 05/13/2021 9:50 AM RISK LEAD Respiratory Rate 18 04/12/2024 9:40 AM RISK LEAD Oxygen Saturation 98% 04/12/2024 9:40 AM RISK LEAD Inhaled Oxygen Concentration - - Weight 502.3 kg (1107 lb 6.4 oz) 04/12/2024 9:40 AM RISK LEAD Height 158.5 cm (5' 2.4 ) 04/12/2024 9:40 AM RISK LEAD Body Mass Index 199.94 04/12/2024 9:40 AM RISK LEAD Plan of Treatment Health Maintenance Due Date Last Done Comments Colon Cancer Screening-Colonoscopy 1954 Depression Screening 1954 Hepatitis C Screening 1954 Hepatitis B Screening 1972 Pneumococcal vaccine 65+ (1 of 1 - PCV) 2004 Well Visit 65+ 06/18/2019 Fall Risk Assessment 05/13/2022 05/13/2021 Covid-19 Vaccine (2023-2 5 season) 2023 01/03/2021, 05/23/2020, 04/25/2020 Influenza Vaccine (#1) 2023 , 01/03/2021, 01/03/2020 Breast Cancer Screening-Mammogram 04/12/2025 04/12/2024, 04/07/2023, 03/27/2022, Additional history exists Osteoporosis Screening-Bone Density Scan 10/11/2025 10/12/2023 DTaP/Tdap/Td Vaccine (2 - Td or Tdap) 11/11/2025 11/12/2015 Zoster Vaccine Completed 03/17/2022, 12/31/2021 Procedures Procedure Name Priority Date/Time Associated Diagnosis Comments SCREENING MAMMOGRAM LEFT W ANTHONY UNILATERAL ONLY Schedule Routine, Read Routine (OP Routine) 04/12/2024 10:12 AM RISK LEAD History of breast cancer Encounter for screening mammogram for malignant neoplasm of breast from Last 3 Months or Most Recently Relevant to Health Maintenance Results * Screening Mammogram Left W Anthony Unilateral Only (04/12/2024 10:12 AM RISK LEAD) Anatomical Region Laterality Modality Breast Left Mammography Narrative 04/12/2024 11:42 AM RISK LEAD Mammogram Technique: Left Breast Digital Breast Tomosynthesis, Unilateral C-view 2D Screening mammogram. Views obtained: left craniocaudal and left mediolateral oblique. Computer Aided Detection was performed. Mammogram Findings: The present examination has been compared to prior imaging studies performed at [facility] on 01/30/2021, 03/27/2022 and 04/07/2023. The breast is heterogeneously dense, which may obscure small masses. There is a sub-pectoral saline implant in the left breast. There is no suspicious abnormality in the left breast. Patient status post contralateral mastectomy for personal history of breast cancer. Impression: There is no mammographic evidence of malignancy. Annual screening mammography is recommended. If supplemental screening is desired, breast MRI would be recommended in this patient with heterogeneously dense breasts. OVERALL FINAL ASSESSMENT: BI-RADS CATEGORY 1: Negative. Procedure Note Linda Sprague MD - 04/12/2024 Mammogram Technique: Left Breast Digital Breast Tomosynthesis, Unilateral C-view 2D Screening mammogram. Views obtained: left craniocaudal and left mediolateral oblique. Computer Aided Detection was performed. Mammogram Findings: The present examination has been compared to prior imaging studies performed at [facility] on 01/30/2021, 03/27/2022 and 04/07/2023. The breast is heterogeneously dense, which may obscure small masses. There is a sub-pectoral saline implant in the left breast. There is no suspicious abnormality in the left breast. Patient status post contralateral mastectomy for personal history ofbreast cancer. Impression: There is no mammographic evidence of malignancy. Annual screening mammography is recommended. If supplemental screeningis desired, breast MRI would be recommended in this patient with heterogeneously dense breasts. OVERALL FINAL ASSESSMENT: BI-RADS CATEGORY 1: Negative. Verónica Parekh NP IMG MAMMO PROCEDURES Fin al Result from Last 3 Months or Most Recently Relevant to Health Maintenance Insurance [facility] CHOICE [place]F [place]PO [place] MEDIC[facility]ICIANS [facility] INS [place] MEDICARE PHYSICIANS [employer] INS [place] MEDICARE PHYSICIANS [employer] LIFE INS [place] Member Subscriber Plan / Payer (Ef fective 2019-Present) Name:Karo Amin Relation to Subscriber:Self Name:Karo Amin Payer ID:[id number] Group ID:MEDICARE SUPP Type:COMMERCIAL Address: [address] [place] Advance Directives For more information, please contact: [phone] * Full Code (Latest Code Status on File) Date Activated Date Inactivated Comments 05/12/2021 11:30 AM 05/13/2021 5:18 PM Care Teams Political Cartoonist Relationship Specialty Start Date End Date No, Physician PCP - General 04/07/23
--- OUTSIDE RECORDS SUMMARY | 2024-07-12 00:45 | XMS_ITS | Referral Summary ---
Author Organization [facility] Address [address] [place] [address] Care Team Providers Care Analytics Manager Name Role Phone No, Physician Primary Care Provider [phone] Allergies No known active allergies Medications busPIRone (BUSPAR) 7.5 mg tabletIndicatio ns:Generalized Anxiety Disorder Take 1 tablet (7.5 mg total) by mouth polysomnographic technologist before breakfast Active cholecalciferol (VITAMIN D-3) 2,000 unit tabletIndicatio ns:Prevention of Vitamin D Deficiency Take by mouth polysomnographic technologist before breakfast Active multivitamin tabletIndicatio ns:Vitamin Deficiency Prevention,supp lement Take 1 tablet by mouth polysomnographic technologist before breakfast Active denosumab (Prolia) 60 mg/mL syringe Prolia 60 mg/mL subcutaneous syringe inject 60 mg SQ once every 6 months Active Active Problems Problem Noted Date Diagnosed Date History of right total mastectomy 04/12/2024 Heterogeneously dense tissue of both breasts on mammography 04/12/2024 Rectocele 02/17/2021 Overview (02/17/2021): Added automatically from request for surgery [id number] History of right breast cancer 12/16/2017 Immunizations Immunization Administration Dates Next Due Influenza, Quadrivalent, Hig h Dose, Preservative Free, Intrr 01/03/2021 Influenza, Quadrivalent, Spl it, Preservative Free, Intramuscular 12/31/2021 Influenza, Trivalent, High D ose, Split, Preservative Free, Intramuscular 01/03/2020 Tdap 11/12/2015 ZOSTER Recombinant 03/17/2022,12/31/2021 Social History Tobacco Use Types Packs/Day Years [...] 05/12/2021 How often do you attend chur ch or gnosticist services? 1 to 4 times per year 05/12/2021 Do you belong to any clubs o r organizations such as taoist groups, unions, fraternal or athletic groups, or [...] on file Legal Sex Female 1:42 AM DENTAL TECHNICIAN INSTRUCTOR Gender Identity Female 01/25/2021 9:57 PM CDT Sexual Orientation Straight 01/25/2021 9: 57 PM CDT Last Filed Vital Signs Vital Sign Reading Time Taken Comments Blood Pressure 128/64 04/12/2024 9:40 AM DENTAL TECHNICIAN INSTRUCTOR Pulse 85 05/13/2021 9:50 AM DENTAL TECHNICIAN INSTRUCTOR Temperature 36.6 C (97.9 F) 05/13/2021 9:50 AM DENTAL TECHNICIAN INSTRUCTOR Respiratory Rate 18 04/12/2024 9:40 AM DENTAL TECHNICIAN INSTRUCTOR Oxygen Saturation 98% 04/12/2024 9:40 AM DENTAL TECHNICIAN INSTRUCTOR Inhaled Oxygen Concentration - - Weight 502.3 kg (1107 lb 6.4 oz) 04/12/2024 9:40 AM DENTAL TECHNICIAN INSTRUCTOR Height 158.5 cm (5' 2.4 ) 04/12/2024 9:40 AM DENTAL TECHNICIAN INSTRUCTOR Body Mass Index 199.94 04/12/2024 9:40 AM DENTAL TECHNICIAN INSTRUCTOR Plan of Treatment Not on file Procedures Procedure Name Priority Date/Time Associated Diagnosis Comments SCREENING MAMMOGRAM LEFT W ANTHONY UNILATERAL ONLY Schedule Routine, Read Routine (OP Routine) 04/12/2024 10:12 AM DENTAL TECHNICIAN INSTRUCTOR History of breast cancer Encounter for screening mammogram for malignant neoplasm of breast from Last 3 Months or Most Recently Relevant to Health Maintenance Results * Screening Mammogram Left W Anthony Unilateral Only (04/12/2024 10:12 AM DENTAL TECHNICIAN INSTRUCTOR) Anatomical Region Laterality Modality Breast Left Mammography Narrative 04/12/2024 11:42 AM DENTAL TECHNICIAN INSTRUCTOR Mammogram Technique: Left Breast Digital Breast Tomosynthesis, Unilateral C-view 2D Screening mammogram. Views obtained: left craniocaudal and left mediolateral oblique. Computer Aided Detection was performed. Mammogram Findings: The present examination has been compared to prior imaging studies performed at [facility] on 01/30/2021, 03/27/2022 and 04/07/2023. The breast [...] compared to prior imaging studies performed at [facility] on 01/30/2021, 03/27/2022 and 04/07/2023. The breast [...] Most Recently Relevant to Health Maintenance Insurance [facility] ACC[facility] BL CHOICE [place] MED[place] PHYS[place]ANS [facility] INS CO MEDICARE PHYSICIANS [employer] LIFE INS [place] MEDICARE PHYSICIANS [employer] LIFE INS [place] Advance Directives For more information, please contact: [phone] * Full Code (Latest Code Status on File) Date Activated Date Inactivated Comments 05/12/2021 11:30 AM 05/13/2021 5:18 PM Care Teams Analytics Manager Relationship Specialty Start Date End Date No, Physician PCP - General 04/07/23
[2024-07-12] MEDS: LACTATED RINGERS 1,000 ML 30 ML IV CONT ×2 (10:20→11:09)
[2024-07-12 10:25] VITALS: BP 137/67; PULSE 69; RESP 14; TEMP 36.5; O2SAT 100
--- NOTE | 2024-07-12 10:27 | PM.IMHP ---
H&P: HPI History of Present Illness Date/Time: 07/12/24 10:27 Chief Complaint: Pelvic pain Narrative: A 69-year-old female with endometrial lesion. We have agreed to perform hysteroscopy D&C to evaluate and treat. She understands risks, benefits, and alternatives. She has completed the informed consent process and is ready to proceed. The patient understands the details of the procedure. The procedure has been explained in detail. She understands the risks. She understands that injuries may occur that result in hospitalization, more surgery, and severe illness. She understands risk of hemorrhage and infection. She denies any chest pain or shortness of breath. She denies any nausea, vomiting, fever, chills. Review of Systems Review of Systems: All systems reviewed & are unremarkable except as noted in HPI and below Constitutional: Constitutional: Denies chills, Denies fatigue, Denies fever(s) and Denies weakness Eyes: Eyes: Denies blurry vision, Denies change in vision, Denies loss of peripheral vision, Denies loss of vision, Denies other visual disturbances and Denies eye pain ENT: Denies vertigo, Denies dizziness, Denies hearing loss, Denies mouth pain, Denies nasal obstruction, Denies neck mass and Denies neck pain Cardiovascular: Cardiovascular: Denies chest pain, Denies diaphoresis, Denies syncope, Denies leg edema and Denies dyspnea Respiratory: Respiratory: Denies chest congestion, Denies cough, Denies hemoptysis, Denies dyspnea and Denies wheezing Gastrointestinal: Gastrointestinal: Denies abdominal pain, Denies constipation, Denies diarrhea, Denies nausea and Denies vomiting Genitourinary: Genitourinary: Denies hematuria, Denies change in libido, Denies nocturia, Denies genital lesions, Denies flank pain and Denies urinary urgency Musculoskeletal: Musculoskeletal: Denies abnormal gait, Denies back pain, Denies myalgias, Denies arthralgias, Denies joint swelling, Denies muscle weakness and Denies neck pain Integumentary/Breasts: Skin/Breast: Denies swelling, Denies breast pain, Denies breast mass, Denies dry skin, Denies nipple discharge, Denies unusual bruising and Denies jaundice Neurologic: Denies Neuro-related abnormal movements, Denies Abnormal speech present, Denies abnormal gait, Denies behavioral changes, Denies confusion, Denies vertigo, Denies dizziness, Denies syncope, Denies loss of vision, Denies memory loss, Denies convulsions and Denies weakness Psychiatric: Psychiatric: Denies abnormal sleep pattern, Denies behavioral changes, Denies change in libido, Denies confusion, Denies depression, Denies anhedonia and Denies memory loss Endocrine: Endocrine: Reports no additional endocrine complaints, Denies change in libido and Denies fatigue Hematologic/Lymphatic: Hematologic/Lymphatic: Reports no additional hematologic/lymphatic complaints Allergic/Immunologic: Allergic/Immunologic: Reports no additional allergic/immunologic complaints and Denies wheezing PMFSH Social History Social History Smoking status: Never smoker Alcohol intake: current Living arrangements: alone Spiritual care concerns: No Meds Home Medications and Allergies Home Medications ?Medication ?Instructions ?Recorded ?Confirmed ?Type buspirone 10 mg tablet 10 mg PO TID 07/03/24 07/03/24 History cholecalciferol (vitamin D3) 50 2,000 unit PO DAILY 07/03/24 07/03/24 History mcg (2,000 unit) capsule multivitamin (Daily Multi-Vitamin 1 tablet PO DAILY 07/03/24 07/03/24 History tablet) Allergies Allergy/AdvReac Type Severity Reaction Status Date / Time No Known Allergies Allergy Unverified 07/03/24 14:21 Exam Const: General: cooperative, healthy appearing, comfortable and no acute distress Orientation/consciousness: oriented to person, oriented to place and oriented to time HENMT: Head: normal to inspection Ears: external ears normal Face/Nose/Sinus: Normal external nose present and normal facial exam Face and sinus: normal facial exam Eyes: General: appearance normal, both eyes and all related structures Neck: Neck: normal visual inspection, trachea midline and supple Resp: Auscultation: clear to auscultation bilaterally, no crackles, no rales, no rhonchi and no wheezes Cardio: Rate: regular rate Rhythm: regular rhythm Heart sounds: no click, no murmurs and no rubs GI: GI Palp: No abdominal tenderness, No Soft to palpation, No Tenderness to palpation present (GI) and No Palpable mass present Auscultation: normal bowel sounds Skin: General skin exam: normal color and no rashes or lesions noted Neuro: General: oriented to person, oriented to place and oriented to time Extrem: General: normal to inspection, no joint enlargement, no clubbing, cyanosis or edema, no pedal edema and no calf tenderness Psych: Appearance: grossly normal Mental Status: mental status grossly normal Speech and movement: Normal speech and movement present Assessment and Plan Assessment and plan (1) Lesion of endometrium: Code(s): N85.9 - Noninflammatory disorder of uterus, unspecified Status: Acute Assessment and Plan: A 69-year-old female with endometrial lesion. We have agreed to perform hysteroscopy D&C to evaluate and treat. She understands risks, benefits, and alternatives. She has completed the informed consent process and is ready to proceed.
[2024-07-12] MEDS: ACETAMINOPHEN 500 MG TABLET 1000 MG PO (10:29)
--- NOTE | 2024-07-12 10:30 | WPDHPUPDATE1 ---
History and Physical Update Update Date/Time: 07/12/24 10:30 History and Physical has been reviewed, including an updated exam of the patient. There are NO changes in the patient's condition. Risks, benefits, and alternatives have been discussed and questions answered. Patient agrees to proceed with procedure.
--- NOTE | 2024-07-12 10:41 | P.PNAN_ITS ---
Anes - Initial Pre Proc Eval Procedure: Operation Date: 07/12/24 12:00 Proposed Procedures p Hysteroscopy with Biopsy of Endometrium and/or Polypectomy - Sg Sy MD Date/Time: 07/12/24 10:41 Surgeon: Sg Sy MD Pre Op Diagnosis: lesion of endometrium Patient Data Age: 69 Gender: F Height: 1.57 m Weight: 48 kg Allergies Allergy/AdvReac Type Severity Reaction Status Date / Time No Known Allergies Allergy Unverified 07/03/24 14:21 Home Medications ?Medication ?Instructions ?Recorded ?Confirmed ?Type buspirone 10 mg tablet 10 mg PO TID 07/03/24 07/03/24 History cholecalciferol (vitamin D3) 50 2,000 unit PO DAILY 07/03/24 07/03/24 History mcg (2,000 unit) capsule multivitamin (Daily Multi-Vitamin 1 tablet PO DAILY 07/03/24 07/03/24 History tablet) Patient hx anesthesia problems: post op nausea/vomiting Family hx anesthesia problems: none Results Review: All pre-operative results and documents have been reviewed as part of the pre-operative evaluation. [facility] Social History Social History Smoking status: Never smoker Alcohol intake: current Living arrangements: alone Spiritual care concerns: No Anes - Eval Final PreProcedure Day of Procedure 07/12/24 10:41 Patient weight: thin Heart: regular rate and rhythm Lungs: clear to auscultation Airway: Mallampati scale class II Neurological: alert and oriented Last oral intake: >/= 8 hours ASA classification: II Emergent: no Anesthetic plan: proceed Anesthesia type and monitoring: general GIVS and standard monitoring Results Review: All pre-operative results and documents have been reviewed as part of the pre- operative evaluation. Informed Consent: The patient's anesthetic plan and its attendant risks and benefits were discussed with the patient/family/POA. Questions were solicited and answers provided to the satisfaction of the patient/family/POA.
[2024-07-12 11:09] VITALS: BP 114/60; PULSE 79; RESP 12; O2SAT 100
[2024-07-12 11:10] VITALS: BMI 19.5
[2024-07-12 11:11] VITALS: O2SAT 100
--- NOTE | 2024-07-12 11:16 | SUR.OPER ---
Fluid Deficit 69
--- NOTE | 2024-07-12 11:22 | W.PM.PROC2 ---
Procedure Note - Detailed Date of Procedure 07/12/24 Pre-op Diagnosis lesion of endometrium Post-op Diagnosis Same Procedure Performed Hysteroscopy D&C Surgeon Sg Sy MD Anesthesia MAC Indications Endometrial lesion Findings Small endometrial polyp at the right uterine cornua, normal vulva, vagina, cervix. Benign-appearing endometrium. Description of Procedure the patient was taken the operating room. She was prepped and draped in the dorsal lithotomy position after induction of mac anesthesia. A speculum was placed in the vagina. The cervix was grasped with a tenaculum. The cervix was dilated about 1 cm. The hysteroscope was inserted. The intrauterine cavity and endocervix were evaluated. Shaver instrument was used in the channel of the hysteroscope to remove a small endometrial polyp. Hysteroscope was withdrawn. A medium-size curette was used to curettage all the surfaces were within the endometrial cavity. the sample was collected on Telfa and sent to pathology. The hysteroscope was reinserted and the above findings were noted. Patient tolerated the procedure well. The speculum and tenaculum were removed. She was taken recovery room in stable condition. Sponge lap and needle counts were correct x2. Estimated Blood Loss 40 Drains No Packing No Pathology Yes Complications No immediate complications Condition Stable Disposition PACU
[2024-07-12 11:40] VITALS: BP 121/64; PULSE 65
[2024-07-12 12:20] VITALS: BP 120/68; PULSE 59
[2024-07-12 12:50] VITALS: BP 139/83; PULSE 60
== END 2024-07-12 12:58 | disposition home or self-care (01) ==
PROVIDERS: PCP Internal Medicine; Visit Provider Obstetrics & Gynecology
PROC: 0U5B8ZZ Destruction of Endometrium, Via Natural or Artificial Opening Endoscopic (ICD-10-PCS; CPT 58563; principal; 2024-07-12 12:00)
DX: N84.0 Polyp of corpus uteri (principal)
CPT/HCPCS: 58558; 88305; A9270; J2003; J2704; J3010; J7120

== ENCOUNTER 2024-11-03 09:53 | Emergency (ER) | payer MEDICARE, OTHER, SELFPAY ==
--- OUTSIDE RECORDS SUMMARY | 2024-11-03 09:56 | XMS_ITS | Clinical Summary ---
Author Organization [facility] Address [address] [place] [address] Phone Care Team Providers Care Nozzle And Sleeve Worker Name Role Phone Carmen Larry APRN, CNP Primary Care Provider + Encounters Date Type Department Care Team Description 08/09/2024 9:00 AM CDT Clinical Support [facility] Oncology Services [address] [place] [address] Shanell Reyes MD Osteoporosis, unspecified osteoporosis type, unspecified pathological fracture presence (Primary Dx) Discharge Disposition: Discharged to home or Selfcare 08/09/2024 Travel from Last 3 Months Social History Tobacco Use Types Packs/Day Years Used Date Smoking Tobacco: Never Assessed Comments Unknown Sex and Gender Information Value Date Recorded Sex Assigned at Not on file Legal Sex Female 10:12 AM CDT Gender Identity Not on file Sexual Orientation Not on file Last Filed Vital Signs Vital Sign Reading Time Taken Comments Blood Pressure 115/71 08/09/2024 9:01 AM CDT Pulse 74 08/09/2024 9:01 AM CDT Temperature 36.3 C (97.4 F) 08/09/2024 9:01 AM CDT Respiratory Rate 16 08/09/2024 9:01 AM CDT Oxygen Saturation 99% 08/09/2024 9:01 AM CDT Inhaled Oxygen Concentration - - Weight - - Height - - Body Mass Index - - Plan of Treatment Health Maintenance Due Date Last Done Comments DEXA Bone Density 1955 Hepatitis C Virus (HCV) Screening 1955 Mammogram 1955 Cologuard 06/18/1999 Colonoscopy 06/18/1999 Colorectal Cancer Screening 06/18/1999 Immunochemical Fecal Occult Blood 06/18/1999 Pneumococcal Immunization (50+ years) (1 of 1 - PCV) 2004 SARS-COV-2 Immunization (5 - season) 2023 10/17/2021, 01/03/2021, 05/23/2020, Additional history exists Influenza Immunization (#1) 11/20/202412/20, 01/03/2021, 01/03/2020 Respiratory Syncytial Virus (RSV) Immunization (Adult) (1 - 1-dose 75+ series) 2029 DTaP/Tdap/Td Immunization Discontinued 11/12/2015 TdaP Immunization Completed 11/12/2015 Zoster Immunization Completed 03/17/2022, Hepatitis B Immunization Aged Out No longer eligible based on patient's age to complete this topic Human Papillomavirus (HPV) Immunization Aged Out No longer eligible based on patient's age to complete this topic Meningococcal Immunization (ACWY) Aged Out No longer eligible based on patient's age to complete this topic Rotavirus Immunization Aged Out No lo nger eligible based on patient's age to complete this topic Insurance [employer] Care Teams Nozzle And Sleeve Worker Relationship Specialty Start Date End Date Carmen Larry APRN, OPEN HEARTH FURNACE OPERATOR HELPER [address] [place] [address] PCP - General Advanced Practice Nurse 01/01/23
--- OUTSIDE RECORDS SUMMARY | 2024-11-03 09:56 | XMS_ITS | Clinical Summary ---
Author Organization [facility] Address [address] [place] [address] Care Team Providers Care Translation Director Name Role Phone No, Physician Primary Care Provider [phone] Allergies No known active allergies Medications busPIRone (BUSPAR) 7.5 mg tabletIndicatio ns:Generalized Anxiety Disorder Take 1 tablet (7.5 mg total) by mouth early childhood aide classroom before breakfast Active cholecalciferol (VITAMIN D-3) 2,000 unit tabletIndicatio ns:Prevention of Vitamin D Deficiency Take by mouth early childhood aide classroom before breakfast Active multivitamin tabletIndicatio ns:Vitamin Deficiency Prevention,supp lement Take 1 tablet by mouth early childhood aide classroom before breakfast Active denosumab (Prolia) 60 mg/mL syringe Prolia 60 mg/mL subcutaneous syringe inject 60 mg SQ once every 6 months Active Active Problems Problem Noted Date Diagnosed Date History of right total mastectomy 04/12/2024 Heterogeneously dense tissue of both breasts on mammography 04/12/2024 Rectocele 02/17/2021 Overview (02/17/2021): Added automatically from request for surgery [id number] History of right breast cancer 12/16/2017 Immunizations [...] e alcohol) Social Connection and Isolation Panel Answer Date Recorded In a typical week, how many times do you talk on the phone with family, friends, or neighbors? Three times a week 05/12/19 How often do you get togethe r with friends or relatives? Once a week 05/12/2021 How often do you attend [facility] or [facility] services? 1 to 4 times per year 05/12/2021 Do you belong to any clubs o r organizations such as gnosticist groups, unions, fraternal or athletic groups, or [...] on file Legal Sex Female 1:42 AM SERVICE TESTER Gender Identity Female 01/25/2021 9:57 PM CDT Sexual Orientation Straight 01/25/2021 9: 57 PM CDT Obstetrics History Last Filed Vital Signs Vital Sign Reading Time Taken Comments Blood Pressure 128/64 04/12/2024 9:40 AM SERVICE TESTER Pulse 85 05/13/2021 9:50 AM SERVICE TESTER Temperature 36.6 C (97.9 F) 05/13/2021 9:50 AM SERVICE TESTER Respiratory Rate 18 04/12/2024 9:40 AM SERVICE TESTER Oxygen Saturation 98% 04/12/2024 9:40 AM SERVICE TESTER Inhaled Oxygen Concentration - - Weight 502.3 kg (1107 lb 6.4 oz) 04/12/2024 9:40 AM SERVICE TESTER Height 158.5 cm (5' 2.4) 04/12/2024 9:40 AM SERVICE TESTER Body Mass Index 199.94 04/12/2024 9:40 AM SERVICE TESTER Plan of Treatment Health Maintenance Due Date Last Done Comments Colon Cancer Screening-Colonoscopy 1955 Depression Screening 1954 Hepatitis C Screening 1954 Hepatitis B Screening 1972 Pneumococcal vaccine 65+ (1 of 1 - PCV) 2004 Well Visit 65+ 06/18/2019 Fall Risk Assessment 05/13/2022 05/13/2021 Covid-19 Vaccine (2023-2 5 season) 2023 01/03/2021, 05/23/2020, 04/25/2020 Influenza Vaccine (#1) 2024 , 01/03/2021, 01/03/2020 Breast Cancer Screening-Mammogram 04/12/2025 04/12/2024, 04/07/2023, 03/27/2022, Additional history exists Osteoporosis Screening-Bone Density Scan 10/11/2025 10/12/2023 DTaP/Tdap/Td Vaccine (2 - Td or Tdap) 11/11/2025 11/12/2015 Zoster Vaccine Completed 03/17/2022, 12/31/2021 Procedures Procedure Name Priority Date/Time Associated Diagnosis Comments SCREENING MAMMOGRAM LEFT W ANTHONY UNILATERAL ONLY Schedule Routine, Read Routine (OP Routine) 04/12/2024 10:12 AM SERVICE TESTER History of breast cancer Encounter for screening mammogram for malignant neoplasm of breast from Last 3 Months or Most Recently Relevant to Health Maintenance Results * Screening Mammogram Left W Anthony Unilateral Only (04/12/2024 10:12 AM SERVICE TESTER) Anatomical Region Laterality Modality Breast Left Mammography Narrative 04/12/2024 11:42 AM SERVICE TESTER Mammogram Technique: Left Breast Digital Breast Tomosynthesis, Unilateral C-view 2D Screening mammogram. Views obtained: left craniocaudal and left mediolateral oblique. Computer Aided Detection was performed. Mammogram Findings: The present examination has been compared to prior imaging studies performed at [facility] on 01/30/2021, 03/27/2022 and 04/07/2023. The breast [...] compared to prior imaging studies performed at [facility] on 01/30/2021, 03/27/2022 and 04/07/2023. The breast [...] Most Recently Relevant to Health Maintenance Insurance Events Core [facility] [facility] [place] MEDICARE [facility]YS[employer]I[facility] INS CO [employer] [place] [employer] Advance Directives For more information, please contact: [phone] * Full Code (Latest Code Status on File) Date Activated Date Inactivated Comments 05/12/2021 11:30 AM 05/13/2021 5:18 PM Care Teams Translation Director Relationship Specialty Start Date End Date No, Physician PCP - General 04/07/23
[2024-11-03 10:02] VITALS: BP 119/65; PULSE 72; RESP 18; TEMP 36.3; O2SAT 100
--- NOTE | 2024-11-03 10:05 | ED.SKABFB ---
HPI - Skin/Abscess/Foreign Bdy General Chief complaint: Skin/Abscess/Foreign Body Stated complaint: growth on finger Time Seen by Provider: 11/03/24 10:06 Source: patient Mode of arrival: ambulatory Limitations: no limitations History of Present Illness HPI narrative: 69 y/o female presented for infection to right 5th digit. Says it started as a red area around the nail 5 days ago. She has soaked it in Epson salt. Now has a pustular area to the side of the nail. denies significant pain, denies drainage or decreased ROM. Related Data Home Medications ?Medication ?Instructions ?Recorded ?Confirmed ?Last Taken ?Type buspirone 10 mg tablet 10 mg PO TID 07/03/24 07/12/24 07/12/24 History cholecalciferol (vitamin D3) 50 2,000 unit PO DAILY 07/03/24 07/12/24 07/09/24 History mcg (2,000 unit) capsule multivitamin (Daily Multi-Vitamin 1 tablet PO DAILY 07/03/24 07/12/24 07/09/24 History tablet) Allergies Allergy/AdvReac Type Severity Reaction Status Date / Time No Known Allergies Allergy Verified 07/12/24 11:03 Review of Systems Review of Systems: CONSTITUTIONAL: Denies body aches, fever, chills, or sweats. CARDIOVASCULAR: Denies chest pain, palpitations, or edema. RESPIRATORY: Denies cough or dyspnea. SKIN: reports right little finger infection MUSCULOSKELETAL: Denies back pain, joint pain, or myalgia. NEUROLOGIC: Denies numbness, tingling, or weakness. [facility] Social History Social History Smoking status: Never smoker Alcohol intake: current Living arrangements: alone Spiritual care concerns: No Comments At time of signature, I have reviewed and agree with nursing past medical, surgical, social and family history unless otherwise noted. Please see nursing chart for further information. There is no relevant family history pertinent to the presenting complaint Exam Narrative: GENERAL: Well-appearing HEAD: Normocephalic, atraumatic. EYES: conjunctivae clear, and EOMI. ENT: Mucous membranes moist. Oropharynx without edema, erythema or lesions. NECK: Supple. No lymphadenopathy CHEST: Clear to auscultation. HEART: Regular rate and rhythm. SKIN: Warm, dry. right 5th digit paronychia minimal swelling, mild erythema with 2 pustules, no active drainage. CMS intact NEURO: Alert and oriented x3. Course Course Emergency Course: Patient is aware of diagnosis, understands and agrees to treatment plan. Anticipatory guidance given. Patient agrees to follow-up as directed and is aware of reasons to seek care at the emergency department. Portions of this record may have been created with voice recognition software Level of Care: Express Care Visit Vital Signs Vital signs: Vital Signs Temperature 97.3 F L 11/03/24 10:02 Pulse Rate 72 11/03/24 10:02 Respiratory Rate 18 11/03/24 10:02 Blood Pressure 119/65 11/03/24 10:02 Pulse Oximetry 100 11/03/24 10:02 Oxygen Delivery Room Air 11/03/24 10:02 Temperature 97.3 F L 11/03/24 10:02 Pulse Rate 72 11/03/24 10:02 Respiratory Rate 18 11/03/24 10:02 Blood Pressure 119/65 11/03/24 10:02 Pulse Oximetry 100 11/03/24 10:02 Oxygen Delivery Room Air 11/03/24 10:02 Reviewed Procedures Abscess I/D right 5th digit: Technique: needle aspiration (#18g) Irrigation: No Packing used?: none I&D Results: Pus and Blood Abcess I&D Additional Comments: The procedure and its alternatives were reviewed with patient. Risks were reviewed with patient including infection and damage to nearby structures. Patient provided verbal informed consent. After soaking in warm soapy water, the site was cleansed with alcohol, The patient was positioned appropriately. Single straight puncture Incision made to center of most fluctuant area of pustule x2. Moderate amount of thick purulent discharge expelled with manual pressure. Pt tolerated the procedure well, no complications. Dressing applied with ASHVIN and bandaid. MDM - Skin/Abscess/Foreign Bdy MDM Narrative Medical decision making narrative: Discussed physical exam findings. Patient tolerated needle aspiration of the paronychia on the right 5th digit. Advised supportive measures and signs/symptoms to go to the ER. Pt is appropriate for outpt treatment and f/u. Differential Diagnosis Differential diagnosis: Likely abscess of skin or subcutaneous tissue, viral exanthem, dermatophytosis, urticaria, herpes zoster, cellulitis, eczema, insect bites, impetigo and contact dermatitis Discharge Plan Discharge Clinical Impression: Paronychia of finger Patient Disposition: Home Condition: Stable Instructions: Antibiotic Form, Paronychia (ED) Additional Instructions: Soak your finger in warm soapy water 4 times each day. You can use Epson salt. This can help with any additional drainage that needs to come out. Elevate your hand above the level of your heart as often as you can. This will help decrease swelling and pain. Avoid cutting cuticles or biting nails Tylenol as needed for pain Take antibiotic as directed Please follow-up with your primary care doctor as needed. please go to the ED for any urgent issues. Patient Language: Ukrainian Prescriptions: New cephalexin 500 mg capsule 500 mg PO Q8H 5 Days Qty: 15 0RF No Action buspirone 10 mg tablet 10 mg PO TID cholecalciferol (vitamin D3) 50 mcg (2,000 unit) capsule 2,000 unit PO DAILY multivitamin [Daily Multi-Vitamin] Tablet 1 tablet PO DAILY Follow-up/Referrals: Amy,MD Shanell [Primary Care Provider] - Time of Disposition: 10:29
== END 2024-11-03 10:34 | disposition home or self-care (01) ==
PROVIDERS: Emergency Provider Nurse Practitioner Family; PCP Internal Medicine
DX: L03.011 Cellulitis of right finger (principal); F41.9 Anxiety disorder, unspecified; Z86.16 Personal history of COVID-19; Z85.3 Personal history of malignant neoplasm of breast; Z90.11 Acquired absence of right breast and nipple
CPT/HCPCS: 10060; 99213; G0463